=== PATIENT | female | born 1950 | race Caucasian/White ===

== ENCOUNTER 2021-07-05 10:12 | Outpatient (CLI) | payer MEDICARE, SELFPAY ==
[2021-07-05 10:57] LABS: SARS-CoV-2 RNA PCR Negative (Negative)
== END 2021-07-05 10:13 | disposition home or self-care (01) ==
LOC: CHSLAB 10:13
PROVIDERS: PCP Internal Medicine
DX: Z01.812 Encounter for preprocedural laboratory examination (principal); Z20.822 Contact with and (suspected) exposure to COVID-19
CPT/HCPCS: C9803; U0003; U0005

== ENCOUNTER 2023-11-08 16:48 | Emergency (ER) | payer MEDICARE, SELFPAY ==
[2023-11-08] VITALS (36 sets, daily range): BP systolic 95–129; BP diastolic 46–69; PULSE 58–77; RESP 13–20; TEMP 36.7; O2SAT 83–100
--- NOTE | 2023-11-08 17:21 | ED.OVERDOSE ---
HPI - Overdose General Chief Complaint: Overdose Stated Complaint: dizziness Time Seen by Provider: 11/08/23 16:59 Source: patient Mode of arrival: ambulatory History of Present Illness HPI Narrative: patient is a 73-year-old female with a significant past medical history that presents today for using too much CBD oral. Patient is ever taking CBD oil in the past. However today she decided to take 80 mg at once accidentally. She did not help which is in the dropper and drink around 80 mg instead of what was supposed to be around 40. She has some shallow breathing and anxiety and says she feels sleepy and dizzy. EMS transfer off and she was already hooked up to fluids and was stable. MD complaint: accidental overdose Onset (ago): hour(s) Time: 17:22 Treatments Prior to Arrival: IV fluids Related Data Home Medications Medication Instructions Recorded Confirmed diltiazem HCl 240 mg 240 mg PO DAILY 11/08/23 11/08/23 capsule,extended release 24 hr lisinopril 20 mg tablet 20 mg PO QPM 11/08/23 11/08/23 lisinopril 20 1 tablet PO QAM 11/08/23 11/08/23 mg-hydrochlorothiazide 25 mg tablet omeprazole 20 mg capsule,delayed 20 mg PO DAILY 11/08/23 11/08/23 release pravastatin 40 mg tablet 40 mg PO HS 11/08/23 11/08/23 Allergies Allergy/AdvReac Type Severity Reaction Status Date / Time cefazolin [From Ancef] AdvReac Nausea and Verified 11/08/23 17:08 Vomiting clarithromycin [From Biaxin] AdvReac Nausea and Verified 11/08/23 17:08 Vomiting tramadol AdvReac Nausea and Verified 11/08/23 17:08 Vomiting Review of Systems Review of Systems: All systems reviewed & are unremarkable except as noted in HPI and below Constitutional: Constitutional: Reports as per HPI Eyes: Eyes: Reports no additional eye complaints ENT: Reports system reviewed and no additional complaints, except as documented Cardiovascular: Cardiovascular: Reports no additional cardiovascular complaints Respiratory: Respiratory: Reports as per HPI Gastrointestinal: Gastrointestinal: Reports no additional gastrointestinal complaints Genitourinary: Genitourinary: Reports no additional female genitourinary complaints Musculoskeletal: Musculoskeletal: Reports no additional musculoskeletal complaints Integumentary/Breasts: Skin/Breast: Reports system reviewed and no additional complaints, except as docu Neurologic: Reports system reviewed and no additional complaints, except as documented Psychiatric: Psychiatric: Reports no additional psychiatric complaints Endocrine: Endocrine: Reports no additional endocrine complaints Hematologic/Lymphatic: Hematologic/Lymphatic: Reports no additional hematologic/lymphatic complaints Allergic/Immunologic: Allergic/Immunologic: Reports no additional allergic/immunologic complaints Exam Const: General: healthy appearing Nutritional Appearance: well nourished Orientation/consciousness: patient oriented x3 HENMT: Head: normal to inspection Ears: external ears normal Face/Nose/Sinus: Normal external nose present Face and sinus: normal facial exam Eyes: Conjunctivae: conjunctivae normal Pupils: Equal, round and reactive pupils present EOM: EOMs intact bilaterally Neck: Neck: normal visual inspection Chest: Chest palpation & inspection: normal inspection of the chest Resp: Effort & Inspection: normal respiratory effort Auscultation: clear to auscultation bilaterally Cardio: Rate: regular rate Rhythm: regular rhythm GI: GI Palp: Yes Soft to palpation Back/Spine/Pelvis: Back: no CVA tenderness Skin: General skin exam: normal color Rashes: no rashes Wounds: no wounds Neuro: General: patient oriented x3 Cranial nerves: Yes Nystagmus not present Extrem: General: normal to inspection Psych: Mental Status: mental status grossly normal Affect: normal affect Course Reevaluation(s) Reevaluation #1: Patient feels much better now and can be safely discharged home. Date:
[2023-11-08 17:55] LABS: Basophils Absolute Auto 0.05 K/mm3 (0.00-0.10); Basophils Percent Auto 0.5 % (0.0-1.0); Eosinophils Absolute Auto 0.21 K/mm3 (0.02-0.50); Hematocrit 41.8 % (35.0-42.0); Hemoglobin 14.2 g/dL (11.7-13.8); Immature Granulocyte Absolute 0.05 K/mm3 (0.00-0.00); Immature Granulocyte Percent A 0.5 % (0.0-0.0); Lymphocytes Percent Auto 16.2 % (18.0-42.0); Mean Corpuscular Hemoglobin 29.6 pg (27.0-31.0); Mean Corpuscular Volume 87.3 fL (78.0-102.0); Mean Platelet Volume 9.8 fl (9.2-11.8); Monocytes Absolute Auto 0.57 K/mm3 (0.10-0.90); Monocytes Percent Auto 5.4 % (2.0-11.0); Neutrophils Percent Auto 75.4 % (50.0-70.0); Platelet Count Result 214 K/mm3 (150-420); Red Blood Count 4.79 M/mm3 (4.20-5.40); White Blood Count 10.5 K/mm3 (4.8-10.8)
[2023-11-08 18:59] LABS: Alanine Aminotransferase 18 U/L (6-35); Albumin Level 4.4 g/dL (3.5-5.1); Alkaline Phosphatase 72 U/L (38-126); Anion Gap 11 mmol/L (4-12); Aspartate Amino Transferase 29 U/L (14-36); Bilirubin,Total 0.4 mg/dL (0.2-1.3); Blood Urea Nitrogen 17 mg/dL (7-17); Calcium 9.4 mg/dL (8.4-10.2); Carbon Dioxide 30 mmol/L (22-30); Chloride 97 mmol/L (98-107); Estimated CRCL calculation 52 ml/min; Estimated Glomerular Filt Rate > 60; Glucose 134 mg/dL (65-110); Osmolality Calculated 289 mOsm/kg (285-295); Potassium 3.3 mmol/L (3.4-5.0); Sodium 138 mmol/L (137-145)
--- NOTE | 2023-11-08 19:27 | PC.NURSE ---
REPORT TO STEPHANIE CARROLL.
[2023-11-08] MEDS: ONDANSETRON INJ 4 MG/2 ML VIAL IV PUSH (19:42)
[2023-11-08] MEDS: SODIUM CHLORIDE 0.9% IV 1,000 ML 999 ML IV CONT ×2 (20:17→22:41)
[2023-11-08 22:02] LABS: Add Urine Microscopic? NO; Appearance Urine Clear (Clear); Bilirubin Urine Negative (Negative); Blood Urine Negative (Negative); Color Urine Yellow (Yellow); Glucose Urine UA Negative (Negative); Ketones Urine Negative (Negative); Leukocyte Esterase Ur Negative (Negative); Nitrate Urine Negative (Negative); Protein Urine Negative (Negative); Specific Grav Ur >= 1.030 (1.010-1.020)
[2023-11-08 22:57] LABS: Amphetamine Screen Urine Negative (Negative); Barbiturate Screen Urine Negative (Negative); Benzodiazepines Screen Urine Negative (Negative); Cannabinoid Screen Urine Positive (Negative); Cocaine Screen Urine Negative (Negative); Methadone Screen Urine Negative (Negative); Opiate Screen Urine Negative (Negative); Phencyclidine Screen Urine Negative (Negative)
[2023-11-09] VITALS (69 sets, daily range): BP systolic 92–134; BP diastolic 49–73; PULSE 56–84; RESP 9–22; TEMP 36.8; O2SAT 92–100
--- NOTE | 2023-11-09 00:29 | PC.NURSE ---
pt ambulated to and from bathroom with assistance. back in room sipping on a white soda. no current complaints. pt is resting comfortably
[2023-11-09] MEDS: SODIUM CHLORIDE 0.9% IV 1,000 ML 999 ML IV CONT (00:44)
--- NOTE | 2023-11-09 02:18 | PC.NURSE ---
pt ambulated to and from bathroom with assistance. pt back in room resting comfortably
--- NOTE | 2023-11-09 04:33 | PC.NURSE ---
pt ambulated to and from bathroom. back in room resting comfortably. pt stated she feels much better
== END 2023-11-09 08:54 | disposition home or self-care (01) ==
PROVIDERS: Emergency Provider Family Medicine
DX: T40.721A Poisoning by synthetic cannabinoids, accidental (unintentional), initial encounter (principal); R42 Dizziness and giddiness; Z79.899 Other long term (current) drug therapy
CPT/HCPCS: 36415; 80053; 80307; 81003; 85025; 96361; 96374; 99284; J2405; J7030

== ENCOUNTER 2024-05-23 18:53 | Day surgery (SDC) | payer MEDICARE, SELFPAY ==
[2024-05-23] VITALS (9 sets, daily range): BP systolic 98–174; BP diastolic 59–90; PULSE 69–80; RESP 14–23; TEMP 36.3–36.8; O2SAT 93–100
--- OUTSIDE RECORDS SUMMARY | 2024-05-23 18:57 | XMS_ITS | Clinical Summary ---
Author Organization [facility] Address [facility] [place] [address] Care Team Providers Care Department Of Natural Resources Officer Name Role Phone Yas Lopez MD Primary Care Provider [phone] Allergies Active Allergy Reactions Criticality Noted Date Comments Cefazolin Unknown 12/13/2022 Clarithromycin Unknown 12/13/2022 Tramadol Vomiting 12/13/2022 Medications HUMIRA PEN 40 MG/0.4ML pen-injector kit Inject 0.4 mLs (40 mg total) into the skin every 7 days. 02/25/2022 Active dilTIAZem CD (CARDIZEM CD) 240 MG 24 hr capsule Take 1 capsule (240 mg total) by mouth daily. 09/11/2022 Active lisinopril (PRINIVIL) 20 MG tablet Take 1 tablet (20 mg total) by mouth every evening. 09/11/2022 Active lisinopril-hydr oCHLOROthiazide (ZESTORETIC) 20-25 MG tablet Take 1 tablet by mouth every morning. FOR 14 DAYS Active omeprazole (PRILOSEC) 20 MG capsule Take 1 capsule (20 mg total) by mouth daily. 09/11/2022 Active pravastatin (PRAVACHOL) 40 MG tablet Take 1 tablet (40 mg total) by mouth nightly at bedtime. Active HYDROcodone-roxanne taminophen (NORCO) 5-325 MG tabletIndicatio ns:Acute Pain < 7 Day Supply Take 1-2 tablets by mouth every 6 (six) hours as needed. Indications: Acute Pain < 7 Day Supply 20 tablet 12/13/2022 Active Encounters Date Type Department Care Team Description 04/29/2024 7:46 AM DEBONING TEAM LEADER - 04/29/2024 11:59 PM DEBONING TEAM LEADER Hospital Encounter [facility] [place] - Mammography [address] [place] [phone] Yas Lopez MD Discharge Disposition: Home or Self Care (Routine Discharge) 04/29/2024 Travel 04/18/2024 1:10 PM DEBONING TEAM LEADER - 04/18/2024 11:59 PM DEBONING TEAM LEADER Hospital Encounter [facility] [place] - Ultrasound [address] [place] [phone] Yas Lopez MD Discharge Disposition: Home or Self Care (Routine Discharge) 04/18/2024 1:09 PM DEBONING TEAM LEADER Hospital Encounter [facility] [place] - Mammography [address] [place] [phone] Yas Lopez MD Discharge Disposition: Home or Self Care (Routine Discharge) 04/18/2024 Travel 04/04/2024 10:28 AM DEBONING TEAM LEADER - 04/04/2024 11:59 PM DEBONING TEAM LEADER Hospital Encounter [facility] [place] - Mammography [address] [place] [phone] Yas Lopez MD Discharge Disposition: Home or Self Care (Routine Discharge) 04/04/2024 Travel from Last 3 Months Social History Tobacco Use Types Packs/Day Years Used Date Smoking Tobacco: Never Smokeless Tobacco: Never Tobacco Cessation:Counseling Given: Not Answered Alcohol Use Standard Drinks/Week Comments Never 0 (1 standard drink = 0.6 oz pur e alcohol) Comments No Sex and Gender Information Value Date Recorded Sex Assigned at Not on file Legal Sex Female 9:27 PM DEBONING TEAM LEADER Gender Identity Not on file Sexual Orientation Not on file Last Filed Vital Signs Vital Sign Reading Time Taken Comments Blood Pressure 101/64 12/13/2022 7:00 PM CDT Pulse 69 12/13/2022 7:00 PM CDT Temperature 35.9 C (96.7 F) 12/13/2022 4:29 PM CDT Respiratory Rate 18 12/13/2022 7:00 PM CDT Oxygen Saturation 95% 12/13/2022 7:00 PM CDT Inhaled Oxygen Concentration - - Weight 70.5 kg (155 lb 6.4 oz) 12/13/2022 4:29 P M CDT Height 158.8 cm (5' 2.5 ) 12/13/2022 4:29 PM CDT Body Mass Index 27.97 12/13/2022 4:29 PM CDT Plan of Treatment Upcoming Encounters Date Type Department Care Team (Late st Contact Info) Description 10/29/2024 11:00 AM CDT Appointment [facility] [place] [facility] - Mammography [address] [place] [address] [phone] [place] [address] [place], [place] [phone] Health Maintenance Due Date Last Done Comments Colorectal Cancer Screening Colonoscopy (10 Years) 1950 Hepatitis C 1968 DTaP, Tdap and Td Vaccines (1 - Tdap) 1969 Annual Medicare Wellness Visit 07/17/2015 Dexa Scan (General) 07/17/2015 Zoster Vaccines (3 of 3) 06/02/2023 04/07/2023, 10/05 COVID-19 Vaccine ( season) 2023 01/18/2023, 01/06/2023, 12/20/2021, Additional history exists Influenza Adult (#1) 2023 01/06/2023, 12/17/2019, 12/18/2018, Additional history exists RSV Immunization or 60+ Years (1 - 1-dose 75+ series) 2025 Mammogram Screening 04/29/2026 04/29/2024, 04/18/2024, 04/04/2024, Additional history exists Pneumococcal Vaccine: 65+ Years Completed 08/18/2022, 01/20/2016 Meningococcal B Vaccine Aged Out No l onger eligible based on patient's age to complete this topic Meningococcal Vaccine Aged Out No russell myrna eligible based on patient's age to complete this topic RSV Immunizations Under 20 Months Aged Out No longer eligible based on patient's age to complete this topic Procedures Procedure Name Priority Date/Time Associated Diagnosis Comments MG STEREO CORE BX RT BIRAD Routine 04/29/2024 9:05 AM DEBONING TEAM LEADER Abnormal mammogram MG POST PROC RT DIAG MAMMO Routine 04/29/2024 8:50 AM DEBONING TEAM LEADER Abnormal mammogram PATHOLOGY Routine 04/29/2024 12:00 AM DEBONING TEAM LEADER US BREAST RT BIRAD LTD Routine 04/18/2024 2:23 PM DEBONING TEAM LEADER Abnormal mammogram MG DIAG ADD VIEW RT DIGI Routine 04/18/2024 1:27 PM DEBONING TEAM LEADER Abnormal mammogram MG SCREENING W BÁRBARA PRIYA DIGI Routine 04/04/2024 10:40 AM DEBONING TEAM LEADER Encounter for screening mammogram for malignant neoplasm of breast from Last 3 Months Results * MG STEREO CORE BX RT BIRAD (04/29/2024 9:05 AM DEBONING TEAM LEADER) Anatomical Region Laterality Modality Breast Right Radiographic Leanna ging RIGHT BREAST STRUCTURE / Unknown 04/29/2024 1:18 PM DEBONING TEAM LEADER Addenda Addendum by Víctor Hassan MD on 05/01/2024 12:32 PM DEBONING TEAM LEADER [facility] [address] [address] [phone] FINAL PATHOLOGY DIAGNOSIS: Breast, right, 4:00 to 4:30, needle biopsies: -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 -Negative for malignancy. RECOMMENDATION: The imaging and pathology are considered concordant. The focal pseudoangiomatous stromal hyperplasia is asymptomatic. This can be followed with imaging. Surgery would be indicated if patient symptomatic. 1: Follow-up Diagnostic Mammogram Right in 6 Months ASSESSMENT: ACR BI-RADS CATEGORY 3 - PROBABLY BENIGN FINDING(S) Ordered By: YAS LOPEZ Interpreted By: Víctor Hassan MD, 05/01/2024 12:28 PM Impressions 04/29/2024 1:21 PM DEBONING TEAM LEADER IMPRESSION: Successful stereotactic biopsy of the asymmetry. Open heart biopsy clip in satisfactory position. Pathology pending. Ordered By: YAS LOPEZ Interpreted By: Víctor Hassan MD, 04/29/2024 1:18 PM Narrative 04/29/2024 1:21 PM DEBONING TEAM LEADER [facility] [address] [address] [phone] EXAM: RIGHT BREAST STEREOTACTIC CORE BIOPSY WITH CLIP PLACEMENT x1 MG POST PROC DIAG MAMMO [id number] Exam Date: 04/29/2024 7:46 AM INDICATION: Persistent indeterminant developing right mammographic asymmetry at 4:00/4:30 spanning AP 9 mm. Sonographically in this radian and indeterminant shadowing amorphous structure noted. It is unclear whether these correlate or this represents incidental sonographically detected finding especially given some slight discordance noted. Stereotactic biopsy recommended to ensure correlation and for definitive histologic diagnosis. PROCEDURE: Patient was referred for stereotactic biopsy of asymmetry demonstrated on diagnostic study. I provided a [id number] consultation prior to the scheduled procedure. The procedure, risks, benefits, and alternatives explained to the patient. Written informed consent obtained. Preprocedure timeout performed using 2 patient identifiers. Patient confirmed the side and type of procedure. I briefly reviewed the patient's medication list in person and verbally prior to the procedure. BIOPSY: After patient was placed on the WeoGeo PRONE AFFIRM stereotactic biopsy device with the breast placed through a hole in compression targeted asymmetry was stereotactically localized from medial approach. Maximal sterile barrier technique was utilized for the entire procedure including handwashing with conventional soap-water and/or alcohol based hand regulatory compliance coordinator. Subsequently 1% lidocaine alone and lidocaine with epinephrine administered for local anesthesia and a small skin damaso was made. The 9 gauge WeoGeo Brevera biopsy device was placed and prefire images confirmed the target. After the device was fired, 11 core samples obtained. These were subsequently x-rayed. SPECIMEN RADIOGRAPH(S): The digital specimen radiograph obtained real-time during active sampling, demonstrates adequate sampling of tissue. Open heart biopsy clip was then deployed at the biopsy site in satisfactory position. Samples sent to pathology for review. POST PROCEDURE MAMMOGRAM: Digital mammogram performed in a separate work room demonstrates post biopsy changes with small hematoma and the clip placed. Tissue density: The breast tissue is almost entirely fatty. Patient tolerated the procedure well and there were no immediate complications. Written and verbal post procedure care instructions given to her prior to her departure. Procedure Note Víctor Hassan MD - 04/29/2024 [facility] [address] [address] [phone] EXAM: RIGHT BREAST STEREOTACTIC CORE BIOPSY WITH CLIP PLACEMENT x1 MG POST PROC DIAG MAMMO [id number] Exam Date: 04/29/2024 7:46 AM INDICATION: Persistent indeterminant developing right mammographicasymmetry at 4:00/4:30 spanning AP 9 mm. Sonographically in this radianand indeterminant shadowing amorphous structure noted. It is unclear whether these correlate or this represents incidentalsonographically detected finding especially given some slight discordancenoted. Stereotactic biopsy recommended to ensure correlation and fordefinitive histologic diagnosis. PROCEDURE: Patient was referred for stereotactic biopsy of asymmetrydemonstrated on diagnostic study. I provided a [id number] consultationprior to the scheduled procedure. The procedure, risks, benefits, andalternatives explained to the patient. Written informed consent obtained.Preprocedure timeout performed using 2 patient identifiers. Patientconfirmed the side and type of procedure. I briefly reviewed the patient'smedication list in person and verbally prior to the procedure. BIOPSY: After patient was placed on the WeoGeo PRONE AFFIRM stereotacticbiopsy device with the breast placed through a hole in compressiontargeted asymmetry was stereotactically localized from medial approach.Maximal sterile barrier technique was utilized for the entire procedureincluding handwashing with conventional soap- water and/or alcohol basedhand regulatory compliance coordinator. Subsequently 1% lidocaine alone and lidocaine withepinephrine administered for local anesthesia and a small skin damaso wasmade. The 9 gauge GamerDNAvera biopsy device was placed and prefireimages confirmed the target. After the device was fired, 11 core samplesobtained. These were subsequently x-rayed. SPECIMEN RADIOGRAPH(S): The digital specimen radiograph obtained real-timeduring active sampling, demonstrates adequate sampling of tissue. Openheart biopsy clip was then deployed at the biopsy site in satisfactoryposition. Samples sent to pathology for review. POST PROCEDURE MAMMOGRAM: Digital mammogram performed in a separate workroom demonstrates post biopsy changes with small hematoma and the clipplaced. Tissue density: The breast tissue is almost entirely fatty. Patient tolerated the procedure well and there were no immediatecomplications. Written and verbal post procedure care instructions given to her prior toher departure. IMPRESSION: Successful stereotactic biopsy of the asymmetry. Open heart biopsy clip in satisfactory position. Pathology pending. 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 -Negative for malignancy. RECOMMENDATION: The imaging and pathology are considered concordant. The focal pseudoangiomatous stromal hyperplasia is asymptomatic. This can be followed with imaging. Surgery would be indicated if patient symptomatic. 1: Follow-up Diagnostic Mammogram Right in 6 Months ASSESSMENT: ACR BI-RADS CATEGORY 3 - PROBABLY BENIGN FINDING(S) Ordered By: YAS LOPEZ Interpreted By: Víctor Hassan MD, 05/01/2024 12:28 PM Impressions 04/29/2024 1:21 PM DEBONING TEAM LEADER IMPRESSION: Successful stereotactic biopsy of the asymmetry. Open heart biopsy clip in satisfactory position. Pathology pending. Ordered By: YAS LOPEZ Interpreted By: Víctor Hassan MD, 04/29/2024 1:18 PM Narrative 04/29/2024 1:21 PM DEBONING TEAM LEADER [facility] [address] [address] [phone] EXAM: RIGHT BREAST STEREOTACTIC CORE BIOPSY WITH CLIP PLACEMENT x1 MG POST PROC DIAG MAMMO [id number] Exam Date: 04/29/2024 7:46 AM INDICATION: Persistent indeterminant developing right mammographic asymmetry at 4:00/4:30 spanning AP 9 mm. Sonographically in this radian and indeterminant shadowing amorphous structure noted. It is unclear whether these correlate or this represents incidental sonographically detected finding especially given some slight discordance noted. Stereotactic biopsy recommended to ensure correlation and for definitive histologic diagnosis. PROCEDURE: Patient was referred for stereotactic biopsy of asymmetry demonstrated on diagnostic study. I provided a [id number] consultation prior to the scheduled procedure. The procedure, risks, benefits, and alternatives explained to the patient. Written informed consent obtained. Preprocedure timeout performed using 2 patient identifiers. Patient confirmed the side and type of procedure. I briefly reviewed the patient's medication list in person and verbally prior to the procedure. BIOPSY: After patient was placed on the WeoGeo PRONE AFFIRM stereotactic biopsy device with the breast placed through a hole in compression targeted asymmetry was stereotactically localized from medial approach. Maximal sterile barrier technique was utilized for the entire procedure including handwashing with conventional soap-water and/or alcohol based hand regulatory compliance coordinator. Subsequently 1% lidocaine alone and lidocaine with epinephrine administered for local anesthesia and a small skin damaso was made. The 9 gauge WeoGeo Brevera biopsy device was placed and prefire images confirmed the target. After the device was fired, 11 core samples obtained. These were subsequently x-rayed. SPECIMEN RADIOGRAPH(S): The digital specimen radiograph obtained real-time during active sampling, demonstrates adequate sampling of tissue. Open heart biopsy clip was then deployed at the biopsy site in satisfactory position. Samples sent to pathology for review. POST PROCEDURE MAMMOGRAM: Digital mammogram performed in a separate work room demonstrates post biopsy changes with small hematoma and the clip placed. Tissue density: The breast tissue is almost entirely fatty. Patient tolerated the procedure well and there were no immediate complications. Written and verbal post procedure care instructions given to her prior to her departure. Procedure Note Víctor Hassan MD - 04/29/2024 [facility] [address] [address] [phone] EXAM: RIGHT BREAST STEREOTACTIC CORE BIOPSY WITH CLIP PLACEMENT x1 MG POST PROC DIAG MAMMO [id number] Exam Date: 04/29/2024 7:46 AM INDICATION: Persistent indeterminant developing right mammographicasymmetry at 4:00/4:30 spanning AP 9 mm. Sonographically in this radianand indeterminant shadowing amorphous structure noted. It is unclear whether these correlate or this represents incidentalsonographically detected finding especially given some slight discordancenoted. Stereotactic biopsy recommended to ensure correlation and fordefinitive histologic diagnosis. PROCEDURE: Patient was referred for stereotactic biopsy of asymmetrydemonstrated on diagnostic study. I provided a [id number] consultationprior to the scheduled procedure. The procedure, risks, benefits, andalternatives explained to the patient. Written informed consent obtained.Preprocedure timeout performed using 2 patient identifiers. Patientconfirmed the side and type of procedure. I briefly reviewed the patient'smedication list in person and verbally prior to the procedure. BIOPSY: After patient was placed on the WeoGeo PRONE AFFIRM stereotacticbiopsy device with the breast placed through a hole in compressiontargeted asymmetry was stereotactically localized from medial approach.Maximal sterile barrier technique was utilized for the entire procedureincluding handwashing with conventional soap- water and/or alcohol basedhand regulatory compliance coordinator. Subsequently 1% lidocaine alone and lidocaine withepinephrine administered for local anesthesia and a small skin damaso wasmade. The 9 gauge WeoGeo Brevera biopsy device was placed and prefireimages confirmed the target. After the device was fired, 11 core samplesobtained. These were subsequently x-rayed. SPECIMEN RADIOGRAPH(S): The digital specimen radiograph obtained real-timeduring active sampling, demonstrates adequate sampling of tissue. Openheart biopsy clip was then deployed at the biopsy site in satisfactoryposition. Samples sent to pathology for review. POST PROCEDURE MAMMOGRAM: Digital mammogram performed in a separate workroom demonstrates post biopsy changes with small hematoma and the clipplaced. Tissue density: The breast tissue is almost entirely fatty. Patient tolerated the procedure well and there were no immediatecomplications. Written and verbal post procedure care instructions given to her prior toher departure. IMPRESSION: Successful stereotactic biopsy of the asymmetry. Open heart biopsy clip in satisfactory position. Pathology pending. Ordered By: YAS LOPEZ Interpreted By: Víctor Hassan MD, 04/29/2024 1:18 PM Yas Lopez MD MAMMO Edited Res ult - Final * Pathology (04/29/2024 12:00 AM DEBONING TEAM LEADER) PATHOLOGY [facility] Department of Laboratory Medicine [address] [place] [phone] , extension [phone] Pathology Report Surgical Pathology Report Name: CATHLEEN PALMER Specimen #: [id number] Age: 5 1950 (Age: 73) Location: [facility] Sex: F Procedure Date: 04/29/2024 Hospital #: [id number] Date Received: 04/29/2024 Date Reported: 04/30/2024 Provider: YAS HASSAN MD Source: Breast, right 4:00-4:30, needle biopsies Clinical History: Right breast asymmetry at 4 o'clock 4:30, spanning 9 mm. 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 -Negative for malignancy. Gross Description: Received in formalin, labeled with a patient label and as right 4 4:30 are multiple 0.3 - 0.4 cm diameter cores and fragments of white yellow tissue, approximately 5.5 x 5 x 0.6 cm in aggregate. The tissue is present in 11 separately designated wells, labeled A through K. The radiologist has not identified any areas of interest. The specimen is entirely submitted in cassettes 1 through 9. Please note: The cold ischemia time for this specimen was less than one hour. It was placed in formalin at 0845 on 04/29/24 for a total time in formalin of 10 hours and 15 minutes. Gross examination (when applicable), interpretation, and sign out were performed at [facility], [address] [place] [address]. Electronically Signed Out KENDALL WILKINS MD [facility] 04/29/2024 04/29/2024 2:3 4 PM DEBONING TEAM LEADER Comment:Breast, right 4:00-4 :30, needle biopsies Yas Lopez MD PATHOLOGY/CYTOLOGY ORDERAB LES Final Result Performing Organization Address City/State/[facility] Co de Phone Number [facility] [address] [place] [phone], [id number] * BREAST RT BIRAD LTD (04/18/2024 2:23 PM DEBONING TEAM LEADER) Anatomical Region Laterality Modality Breast Right Ultrasound 04/18/2024 1:55 PM DEBONING TEAM LEADER Narrative 04/18/2024 2:26 PM DEBONING TEAM LEADER [address] [address] Examination(s): RIGHT DIGITAL DIAGNOSTIC MAMMOGRAM [id number] Exam Date: 04/18/2024 1:09 PM Clinical Indication: Female 73 years of age additional imaging indeterminant asymmetry. Comparison: Screening mammogram 03/30 Technique: True lateral and multiple spot images. Tomosynthesis imaging acquisition. Study supplemented with computer aided detection program. Static sonographic grayscale images obtained supplemented with Doppler. MAMMOGRAM FINDINGS: The subcentimeter lower inner anterior to mid junction asymmetry of concern persists with minimal variability on the true lateral view. On spot imaging there is persistence with partial compressibility and lobulated as well as convex contours. This appears to be heavily developing appearance when compared to older prior mammogram from 03/29. Located at 4:00/4:30 spanning AP 9 mm. Targeted ultrasound performed to further characterize. Additional and scarring with areas of fat necrosis/oil cysts and scattered calcifications throughout the remainder of the breast along with fluctuant waxing waning nodules compatible with known history of cysts. RIGHT ULTRASOUND FINDINGS: Targeted ultrasound Performed from 06 02-08 02. At the 4:00/4:30 radian and amorphous the probably hypoechoic shadowing nonparallel structure identified. Difficult to characterize size but spans approximately 6 x 5 x 4 mm with volume of 0.03 mL. The no definite internal vascularity. It is unclear whether this corresponds with the mammographic developing asymmetry of concern or represent incidental ultrasound detected finding potentially related to postsurgical scarring and fat necrosis. By criteria no suspicious appearing axillary lymph nodes demonstrated. IMPRESSION 1. Persistent indeterminant developing right mammographic asymmetry confirmed at 4:00/4:30. Sonographically in this radian and indeterminant shadowing amorphous structure noted. It is unclear whether these correlate or this represents incidental sonographically detected finding especially given some slight discordance noted. Stereotactic biopsy recommended to ensure correlation and for definitive histologic diagnosis. 2. Additional stable and benign findings, detailed above. Findings and recommendations conveyed to the patient and ordering provider's office by our department navigator as per standard protocol. RECOMMENDATION: Needle Biopsy Right in 1 Year ASSESSMENT: ACR BI-RADS CATEGORY 4 - SUSPICIOUS FINDING(S) Ordered By: YAS LOPEZ Interpreted By: Sushma Lacy MD, 04/18/2024 1:55 PM us Yas Lopez MD ULTRASOUND Final Resu lt * MG DIAG ADD VIEW RT DIGI (04/18/2024 1:27 PM DEBONING TEAM LEADER) Anatomical Region Laterality Modality Breast Right Radiographic Leanna ging 04/18/2024 1:55 PM DEBONING TEAM LEADER Narrative 04/18/2024 2:26 PM DEBONING TEAM LEADER [facility] [address] [address] [phone] Examination(s): RIGHT DIGITAL DIAGNOSTIC MAMMOGRAM [id number] Exam Date: 04/18/2024 1:09 PM Clinical Indication: Female 73 years of age additional imaging indeterminant asymmetry. Comparison: Screening mammogram 03/30 Technique: True lateral and multiple spot images. Tomosynthesis imaging acquisition. Study supplemented with computer aided detection program. Static sonographic grayscale images obtained supplemented with Doppler. MAMMOGRAM FINDINGS: The subcentimeter lower inner anterior to mid junction asymmetry of concern persists with minimal variability on the true lateral view. On spot imaging there is persistence with partial compressibility and lobulated as well as convex contours. This appears to be heavily developing appearance when compared to older prior mammogram from 03/29. Located at 4:00/4:30 spanning AP 9 mm. Targeted ultrasound performed to further characterize. Additional and scarring with areas of fat necrosis/oil cysts and scattered calcifications throughout the remainder of the breast along with fluctuant waxing waning nodules compatible with known history of cysts. RIGHT ULTRASOUND FINDINGS: Targeted ultrasound Performed from 3 30-5 30. At the 4:00/4:30 radian and amorphous the probably hypoechoic shadowing nonparallel structure identified. Difficult to characterize size but spans approximately 6 x 5 x 4 mm with volume of 0.03 mL. The no definite internal vascularity. It is unclear whether this corresponds with the mammographic developing asymmetry of concern or represent incidental ultrasound detected finding potentially related to postsurgical scarring and fat necrosis. By criteria no suspicious appearing axillary lymph nodes demonstrated. IMPRESSION 1. Persistent indeterminant developing right mammographic asymmetry confirmed at 4:00/4:30. Sonographically in this radian and indeterminant shadowing amorphous structure noted. It is unclear whether these correlate or this represents incidental sonographically detected finding especially given some slight discordance noted. Stereotactic biopsy recommended to ensure correlation and for definitive histologic diagnosis. 2. Additional stable and benign findings, detailed above. Findings and recommendations conveyed to the patient and ordering provider's office by our department navigator as per standard protocol. RECOMMENDATION: Needle Biopsy Right in 1 Year ASSESSMENT: ACR BI-RADS CATEGORY 4 - SUSPICIOUS FINDING(S) Ordered By: YAS LOPEZ Interpreted By: Sushma Lacy MD, 04/18/2024 1:55 PM Yas Lopez MD MAMMO Final Resu lt * MG SCREENING W BÁRBARA PRIYA DIGI (04/04/2024 10:40 AM DEBONING TEAM LEADER) Anatomical Region Laterality Modality Breast Bilateral Mammography 04/04/2024 4:25 PM DEBONING TEAM LEADER Impressions 04/04/2024 4:36 PM DEBONING TEAM LEADER IMPRESSION: Indeterminate two-view nodular asymmetry in the inferior medial right breast. RECOMMENDATION: Additional Imaging, Right ASSESSMENT: ACR BI-RADS 0 - INCOMPLETE: NEEDS ADDITIONAL IMAGING EVALUATION Ordered By: YAS LOPEZ Interpreted By: Tony Kraus MD, 04/04/2024 4:25 PM Narrative 04/04/2024 4:36 PM DEBONING TEAM LEADER [facility] [address] [id number] [phone] EXAMINATION: BILATERAL SCREENING MAMMOGRAPHY Exam Date: 04/04/2024 10:28 AM CLINICAL INDICATION: 73 years of age female routine screening. COMPARISON: Screening mammogram(s) dating back to 10/13/2020. TECHNIQUE: Digital CC & MLO views. Tomosynthesis imaging acquisition Study read with the assistance of a computer-aided detection system. TISSUE DENSITY: The breasts are almost entirely fatty. FINDINGS: Benign calcifications and axillary lymph nodes. Biopsy clip in the lateral left breast. There is a increasing fairly well-circumscribed two-view nodular asymmetry. No suspicious grouping of microcalcifications, architectural distortion, or new dominant suspicious nodule otherwise 3 dimensionally demonstrated in either breast. Yas Lopez MD MAMMO Final Resu lt from Last 3 Months Insurance [employer] Care Teams Department Of Natural Resources Officer Relationship Specialty [place] [address] [place] [address] PCP - General INTERNAL MEDICINE 04/24/18
--- OUTSIDE RECORDS SUMMARY | 2024-05-23 18:57 | XMS_ITS | Encounter Summary ---
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 Gender Identity Not on file Sexual Orientation Not on file documented as of this encounter Plan of Treatment Upcoming Encounters Date Type Department Care Team (Late Contact Info) Description 10/29/2024 11:00 AM CDT Appointment [facility] [address] [place] [id number] [place] [address] [place], [place] [id number] documented as of this encounter Visit Diagnoses Not on filedocumented in this encounter Care Teams Go Cart Mechanic Relationship Specialty [place] [address] [place], [place] [id number] PCP - General INTERNAL MEDICINE 04/24/18 documented as of this encounter
--- OUTSIDE RECORDS SUMMARY | 2024-05-23 18:57 | XMS_ITS | Data Portability ---
Author Organization [facility], [address] ([place]) Address [address] 4th [place] [address] Care Team Providers Care Caregiver Assisted Living Name Role Phone YAS LOPEZ Primary Care Provider [phone] TC RAMOS Referring Provider [phone] Assessment Encounter Date Assessment Date Assessment LastModified by Organization Details LastModified Time 04/10/2024 04/10/2024 I will order lab s to check her cholesterol and kidney and liver function test. She will do these at [facility] tomorrow when she sees Dr. Cr in case he wants to add any other blood work to her draw. She will continue her current therapies. For caregiver stress, it sounds as if she has good support with family members. I did offer her to see a counselor but at this time she thinks she is okay. She knows to call me with any concerns. I will see her back in 6 months. She had an abnormal mammogram and is having a follow-up in April on the . Total time 30 minutes [email or web address] Not available 04/16/2024 19:56:59 04/11/2024 04/11/2024 IMPRESSION: 1. Seropositive RA, currently well controlled. 2. Osteoarthritis polyarticular. PLAN: 1. Provided the patient will instructional sheets in hip stretches and shoulder stretches 25 repetitions twice daily of each exercise. 2. Continue HUMIRA 40 mg subcutaneously every other week dosing. 3. CRP and Westergren sed rate at this time. 4. Followup visit in 1 year. She will undergo routine CBC and CMP monitoring with her PCP once yearly. [email or web address] Not available 04/13/2024 13:47:08 05/13/2024 05/13/2024 1. The following diagnosis is categorized as a CHRONIC ILLNESS (at Pt Goal): Psoriasis vulgaris, ~BSA 0%, psoriatic arthritis, prior to RX Humira 15% : Reviewed diagnosis and treatment options. We reviewed the fact that this is a multisystem disorder and can be associated with other problems such as arthritis, diabetes, hypertension and hyperlipidemia. We discussed the chronic nature of this condition and the fact that symptoms can fluctuate over time. The importance of daily use of emollients was reviewed. Pt informed pt about psoriasis, cause, and that trauma/rubbing/itc kamaljit can make it worse. The various therapeutic modalities for psoriasis including topical treatments, ultraviolet light treatment, oral treatments and injectable biologic treatments were discussed. Prior to me, pt followed with several other dermatologists. She had tried and failed several RX topicals including Clobetasol and also tried and failed ILTAC. She also reported trying and failing NBUVB. Due to long history of being on RX po methotrexate, I sent her to hepatology who performed a fibroscan. Fibroscan showed severe hepatic steatosis and no hepatic fibrosis and pt was advised to follow up in 6 months for repeat scan. With her severe hepatic steatosis, I advised we try to stay off RX po methotrexate and switch to another treatment that ideally will not cause further liver damage. Dr. Cr, who diagnosed her with HLA B27/psoriatic arthritis started her on RX Humira. She stopped RX Otezla that helped her skin but not her joints. She is tolerating RX Humira well with no side effects and bother her skin and joints are improved. PRESCRIPTION DRUG MANAGEMENT was performed including discussion with the patient and/or family member that may include dose, expectations of treatment including potential side effects, review of patient response, and when necessary or clinically appropriate change in medication or dosage. For any flares, restart RX clobetasol 0.05% ointment twice a day to affected areas x 2 weeks, then 1 week break. Stop Clobetasol once skin is no longer red and raised however continue Dovonex. On week off, use RX Dovonex ointment BID. Hold RX mometasone. continue too follow with Dr. Cr who manages her RX Humira. 2. The following diagnosis is categorized as a SELF LIMITED OR MINOR PROBLEM: We discussed the fact that lentigines are actinically induced and that they are benign. We discussed the fact that they should be watched carefully for change. We discussed the importance of photoprotection using protective clothing and sunscreen with SPF thirty or higher on a regular basis. 3. The following diagnosis is categorized as a CHRONIC ILLNESS (STABLE/At Pt Goal): Benign nevi. We discussed the importance of watching for new and/or changing lesions. We discussed the worrisome changes to watch for that could indicate a melanoma. We discussed the importance of photoprotection using protective clothing and sunscreen with OTC SPF thirty or higher. Avoid peak hours of sun exposure (10am-3pm). We discussed the importance of regular self skin examinations. 4. The following diagnosis is categorized as a SELF LIMITED OR MINOR PROBLEM: Seborrheic keratoses, sebaceous hyperplasia: We discussed the fact that these are benign lesions requiring no treatment. We discussed the fact that removal would be considered a cosmetic procedure and would not be covered by insurance. The patient was advised that more such lesions may develop. The patient is not bothered by the lesions and does not wish to have them treated. We will observe. 5. The following diagnosis is categorized as CHRONIC ILLNESS (STABLE) Immunosuppression due to Rx Humira for psoriatic arthritis: Will continue to closely monitor, recommend at least annual skin checks or sooner for any new or changing lesions. Discussed increased risk of skin cancer. Photoprotection advised including broad spectrum spf at least 30, hats, long sleeves. Skin cancer hand out provided and reviewed 6. The following diagnosis is categorized as a SELF LIMITED OR MINOR PROBLEM: Wart. The options including observation, qkpn-rnn-romytlo treatments, and destructive measures were discussed. The patient wishes to proceed with liquid nitrogen treatment today. An explanation of the procedure was provided. The risks and benefits of the treatment, the risks and benefits of alternative treatments, as well as the possible consequences of not undergoing treatment were discussed. The verbalizes understanding and gives consent to proceed with treatment. Discussed that the lesion may need several serial visits before completion of treatment. The lesion was treated with liquid nitrogen: right neck. Wound care instructions were given. 7. The following diagnosis is categorized as a CHRONIC ILLNESS Actinic keratosis/Actinic damage: I suggested we treat the lesions with liquid nitrogen today. The risks and benefits of the procedure, the risks and benefits of alternative procedures, as well as the possible consequences of not undergoing the procedure were discussed. The patient verbalized understanding and gives consent to proceed. Liquid nitrogen was applied to all affected areas. Side effects of pain, redness, blistering, scabbing, hypopigmentation and recurrence were discussed with the patient. The patient was advised that these are pre-skin cancers: they have a small risk of developing into skin cancers and their presence signifies an increased risk for developing skin cancer. Thus she was advised to use a sunscreen of at least SPF 30 and wear protective clothing. (1) Lesions were treated on the left hand (1). Pt to call if lesions do not heal/resolve as expected. Pt voiced understanding 8. The following diagnosis is categorized as a SELF LIMITED OR MINOR PROBLEM: Seborrheic keratoses: We discussed the benign nature of the lesions. None of these lesions are clinically inflamed. We discussed the fact that insurance will not cover removal of these lesions as this is considered a cosmetic procedure. The patient understands and wishes to proceed with treatment. The risks and benefits of the procedure, the risks and benefits of alternative procedures, as well as the possible consequences of not undergoing the procedure were discussed. The potential for recurrence and development of further lesions was discussed. The potential pigmentary changes was discussed. The patient verbalizes understanding and gives consent to proceed with treatment. Lesions were treated with liquid nitrogen: right mcnulty (1) - No charge for this procedure. The patient tolerated the procedure well. Post-treatment instructions were discussed. I asked pt to return in 1 year for TBSE/immunosuppres sed/psoriasis. Pt will call with any questions or concerns in the meantime. Not available 05/14/2024 19:59:39 05/16/2024 05/16/2024 73 yo s/p right breast biopsy showing focal PASH H/o left breast PASH 2016, not excised LTR T-C 5% Right DX MMG US 6 mo, will call with results As long as benign, plan for bilateral MMG in one year Return to the clinic in 1 year Call with any concerns 45 minutes spent counseling,coordin ating care, and documentation, as well as reviewing imaging and recent medical documentation. [email or web address] Not available 05/20/2024 11:40:08 Plan of Treatment Reminders Order Date Submit Date Provider Last Modified By Organization Details Last Modified Time Details Appointments Complete Physical Adult 30.EST 2024 11:00A M Dr. Yas Franklin Not available Not available Not available [facility] Patient 15.EST 2025 10:30A M Dr. Beba Cr Not available Not available Not available [facility] Patient 10.EST 2025 11:20A M Dr. Tc Ramos Not available Not available Not available [facility] Patient 20.EST 2025 01:40P M Erum Jorge Not available Not available Not available Lab CMP, serum or plasma 2024 025 [email or web address] [facility], [address] [place] [address], [id number], 04/19/2024 16:05:24 lipid panel, serum 2024 025 [facility], [address] [place] [address], [id number], 04/11/2024 18:16:45 CMP, serum or plasma 2024 025 [facility], [address] [place] [address], [id number], 04/11/2024 18:24:03 CK (creatin e kinase), total, serum 2024 025 [facility], [address] [place] [address], [id number], 04/11/2024 18:16:47 Referral None recorded . Procedures None recorded . Surgeries None recorded . Imaging None recorded . Medication Orders None recorded . Patient TargetsNo targets recorded. Patient InstructionsNo instructions recorded. Reason for Referral None Reported. Results Created Date Observation Date Name Description Value Unit Range Abnormal Flag Note LastModifiedBy Organization Detail LastModifiedTime 10/06/19 24 10/06/2023 CBC w/ auto diff CBC with differential Not Available [facility] [address] [place] [address], [id number], 10/06/2023 18:42:58 10/06/19 24 10/06/2023 CBC w/ auto diff WBC 7.6 K/uL 3.8-11 .2 Not Available [facility] [address] [place] [address], [id number], 10/06/2023 18:42:58 10/06/19 24 10/06/2023 CBC w/ auto diff RBC 5.10 M/uL 3.92-5 .10 Not Available [facility] [address] [place] [address], [id number], 10/06/2023 18:42:58 10/06/19 24 10/06/2023 CBC w/ auto diff HGB 15.1 g/dL 11.8-1 5.3 Not Available [facility] [address] [place] [address], 48775, 10/06/2023 18:42:58 10/06/19 24 10/06/2023 CBC w/ auto diff HCT 44.0 % 36.5-4 4.8 Not Available [facility] [address] [place] [address], [id number], 10/06/2023 18:42:58 10/06/19 24 10/06/2023 CBC w/ auto diff MCV 86.3 fL 80.0-9 9.0 Not Available [facility] [address] [place] [address], [id number], 10/06/2023 18:42:58 10/06/19 24 10/06/2023 CBC w/ auto diff MCH 29.6 pg 25.5-3 3.6 Not Available [facility] [address] [place] [address], [id number], 10/06/2023 18:42:58 10/06/19 24 10/06/2023 CBC w/ auto diff MCHC 34.3 g/dL 32.0-3 6.0 Not Available [facility] [address] [place] [address], [id number], 10/06/2023 18:42:58 10/06/19 24 10/06/2023 CBC w/ auto diff RDW-SD 39.9 fL 35.1 - 46.3 Not Available [facility] [address] [place] [address], [id number], 10/06/2023 18:42:58 10/06/19 24 10/06/2023 CBC w/ auto diff plt 283 K/uL 130-40 0 Not Available [facility] [address] [place] [address], 48577, 10/06/2023 18:42:58 10/06/19 24 10/06/2023 CBC w/ auto diff MPV 10.7 fL 9.3-12 .8 Not Available [facility] [address] [place] [address], [id number], 10/06/2023 18:42:58 10/06/19 24 10/06/2023 CBC w/ auto diff ade% 49.5 % 39.8-7 1.3 Not Available [facility] [address] [place] [address], [id number], 10/06/2023 18:42:58 10/06/19 24 10/06/2023 CBC w/ auto diff lym% 36.3 % 19.2-4 7.1 Not Available [facility] [address] [place] [address], [id number], 10/06/2023 18:42:58 10/06/19 24 10/06/2023 CBC w/ auto diff mono% 8.4 % 1.7-12 .0 Not Available [facility] [address] [place] [address], [id number], 10/06/2023 18:42:58 10/06/19 24 10/06/2023 CBC w/ auto diff eos% 4.6 % 0.0-12 .0 Not Available [facility] [address] [place] [address], [id number], 10/06/2023 18:42:58 10/06/19 24 10/06/2023 CBC w/ auto diff baso% 0.9 % 0.0-3. 0 Not Available [facility] [address] [place] [address], 17323, 10/06/2023 18:42:58 10/06/19 24 10/06/2023 CBC w/ auto diff abs ade 3.8 K/uL 1.8-7. 5 Not Available [facility] [address] [place] [address], [id number], 10/06/2023 18:42:58 10/06/19 24 10/06/2023 CBC w/ auto diff abs lym 2.8 K/uL 1.1-3. 3 Not Available [facility] [address] [place] [address], [id number], 10/06/2023 18:42:58 10/06/19 24 10/06/2023 CBC w/ auto diff abs mono 0.6 K/uL 0.1-1. 0 Not Available [facility] [address] [place] [address], 45912, 10/06/2023 18:42:58 10/06/19 24 10/06/2023 CBC w/ auto diff abs eos 0.4 K/uL 0.0-0. 7 Not Available [facility] [address] [place] [address], [id number], 10/06/2023 18:42:58 10/06/19 24 10/06/2023 CBC w/ auto diff abs baso 0.1 K/uL 0.0-0. 2 Not Available [facility] [address] [place] [address], 43752, 10/06/2023 18:42:58 10/06/19 24 10/06/2023 CBC w/ auto diff imm. gran % 0.3 % 0.0-3. 0 Not Available [facility] [address] [place] [address], 62259, 10/06/2023 18:42:58 10/06/19 24 10/06/2023 CBC w/ auto diff NRBC % 0.0 % 0.0-0. 2 Not Available [facility] [address] [place] [address], [id number], 10/06/2023 18:42:58 10/06/19 24 10/06/2023 CMP, serum or plasm a comp. met. panel Not Available [facility] [address] [place] [address], [id number], 10/06/2023 18:59:01 10/06/19 24 10/06/2023 CMP, serum or plasm a sodium 139 mmol/ L 136-14 6 Not Available [facility] [address] [place] [address], 25291, 10/06/2023 18:59:01 10/06/19 24 10/06/2023 CMP, serum or plasm a potassium 3.7 mmol/ L 3.5-5. 1 Not Available [facility] [address] [place] [address], 83443, 10/06/2023 18:59:01 10/06/19 24 10/06/2023 CMP, serum or plasm a chloride 104 mmol/ L 98-110 Not Available [facility] [address] [place] [address], 52999, 10/06/2023 18:59:01 10/06/19 24 10/06/2023 CMP, serum or plasm a CO2 31 mEq/L 20-32 Not Available [facility] [address] [place] [address], [id number], 10/06/2023 18:59:01 10/06/19 24 10/06/2023 CMP, serum or plasm a anion gap 8 mmol/ L 10-22 low Not Available [facility] [address] [place] [address], [id number], 10/06/2023 18:59:01 10/06/19 24 10/06/2023 CMP, serum or plasm a glucose 101 mg/dL 70-100 high Not Available [facility] [address] [place] [address], [id number], 10/06/2023 18:59:01 10/06/19 24 10/06/2023 CMP, serum or plasm a calcium 10.5 mg/dL 8.4-10 .4 high Not Available [facility] [address] [place] [address], 62907, 10/06/2023 18:59:01 10/06/19 24 10/06/2023 CMP, serum or plasm a total protein 7.7 g/dL 6.4-8. 3 Not Available [facility] [address] [place] [address], 82933, 10/06/2023 18:59:01 10/06/19 24 10/06/2023 CMP, serum or plasm a albumin 4.8 g/dL 3.5-5. 3 Not Available [facility] [address] [place] [address], [id number], 10/06/2023 18:59:01 10/06/19 24 10/06/2023 CMP, serum or plasm a ALP 76 U/L 44 - 127 Not Available [facility] [address] [place] [address], 31946, 10/06/2023 18:59:01 10/06/19 24 10/06/2023 CMP, serum or plasm a AST (SGOT) 18 U/L 10-40 Not Available [facility] [address] [place] [address], [id number], 10/06/2023 18:59:01 10/06/19 24 10/06/2023 CMP, serum or plasm a total bilirubin 0.5 mg/dL 0.2-1. 0 Not Available [facility] [address] [place] [address], 13764, 10/06/2023 18:59:01 10/06/19 24 10/06/2023 CMP, serum or plasm a ALT (SGPT) 15 U/L 8-35 Not Available [facility] [address] [place] [address], 17318, 10/06/2023 18:59:01 10/06/19 24 10/06/2023 CMP, serum or plasm a BUN 18 mg/dL 7-21 Not Available [facility] [address] [place] [address], 46032, 10/06/2023 18:59:01 10/06/19 24 10/06/2023 CMP, serum or plasm a creatinine 0.9 mg/dL 0.7-1. 3 Not Available [facility] [address] [place] [address], 79277, 10/06/2023 18:59:01 10/06/19 24 10/06/2023 CMP, serum or plasm a GFR(non-afri can malawian) 65 Not Available [facility] [address] [place] [address], 65917, 10/06/2023 18:59:01 10/06/19 24 10/06/2023 CMP, serum or plasm a GFR() 79 (LITHOGRAPHIC PHOTOGRAPHER MALU KIDNE Y DISEA SE HAS A GFR LESS THAN 60 ML/AK N/1.7 3 MM FOR A PERIO D OF THREE MONTH S OR MORE. ) Not Available [facility] [address] [place] [address], 74016, 10/06/2023 18:59:01 10/18/19 24 10/20/2023 surgi jennyfer patho logy study tissue exam biopsy [facility] [address] [address] Ph. Dino Milan MD, PhD, Medic al Direc tor SHUST ER, DMMAGY Dominguez nt: ALINEI NSON, EBERL E SRUTHI Sampl e ID: [id number] Repor t Statu s: Final :0 1950 Case #: [id number] Age: 73 Y Gende r: F Date Colle cted: 10/17 MRN # : [id number] Date Recei cody: 10/17 Repor dagoberto Date: 10/19 FINAL DIAGN OSIS: Esoph karthik, biops y: -Reac tive gastr oesop hagea l mucos a with few intra epith elial eosin ophil s (up to 5 eosin ophil s per high- power field ) consi stent with reflu x esoph agiti s -No evide nce of intes tinal (Ortiz ett's ) metap lasia -No evide nce of dyspl lenny or malig avery Elect fabricio alexander Verif ied by Kp lopez MD Elect fabricio mancini 10/19 09:04 SPECI MEN SOURC E: Esoph karthik, biops y GROSS DESCR IPTIO N: The speci men conta iner( s) and requi sitio n have the same patie nt name. Recei cody in 10% neutr al buffe red forma trey for forma trey-f ixed paraf fin-e mbedd ed secti ons label ed A, Marlette tt's biops y are three fragm ents of mccormack- wadsworth soft tissu e that are 0.3-0 .5 cm in great est dimen radha. The speci men is entir konstantin submi tted for histo logic study in one casse tte. CLINI JENNYFER INFOR MATIO N: Marlette tt's, GERD. Not Available [facility] [address] [place] [address], [id number], 10/20/2023 10:07:29 04/11/19 25 04/11/2024 ESR (eryt hrocy te sedim entat ion rate) , blood sed rate 6 mm/HR 0 - 30 Not Available [facility] [address] [place] [address], [id number], 04/11/2024 18:09:01 04/11/19 25 04/11/2024 lipid panel , serum lipid profile Not Available [facility] [address] [place] [address], [id number], 04/11/2024 18:16:45 04/11/19 25 04/11/2024 lipid panel , serum cholesterol 132 mg/dL <25-20 0 Not Available [facility] [address] [place] [address], 10741, 04/11/2024 18:16:45 04/11/19 25 04/11/2024 lipid panel , serum triglyceride 138 mg/dL 15-200 Not Available [facility] [address] [place] [address], 33421, 04/11/2024 18:16:45 04/11/19 25 04/11/2024 lipid panel , serum HDL 43 mg/dL >40 Not Available [facility] [address] [place] [address], 50846, 04/11/2024 18:16:45 04/11/19 25 04/11/2024 lipid panel , serum LDL, calculated 61 mg/dL 5-100 Not Available [facility] [address] [place] [address], 32183, 04/11/2024 18:16:45 04/11/19 25 04/11/2024 lipid panel , serum VLDL 28 mg/dL 1-40 Not Available [facility] [address] [place] [address], 55627, 04/11/2024 18:16:45 04/11/19 25 04/11/2024 lipid panel , serum chol/HDL 3.1 ratio 0.0-4. 4 Not Available [facility] [address] [place] [address], 42751, 04/11/2024 18:16:45 04/11/19 25 04/11/2024 CK (crea madison kinas e), total , serum CPK- Not Available [facility] [address] [place] [address], 88814, 04/11/2024 18:16:47 04/11/19 25 04/11/2024 CK (crea madison kinas e), total , serum CPK 97 U/L 30-200 Not Available [facility] [address] [place] [address], [id number], 04/11/2024 18:16:47 04/11/19 25 04/11/2024 C-nav ctive prote in, quant itati ve, serum or plasm a CRP Not Available [facility] [address] [place] [address], [id number], 04/11/2024 18:18:16 04/11/19 25 04/11/2024 C-nav ctive prote in, quant itati ve, serum or plasm a CRP 0.5 mg/dL <0.4-0 .5 Not Available [facility] [address] [place] [address], 75636, 04/11/2024 18:18:16 04/11/19 25 04/11/2024 CMP, serum or plasm a comp. met. panel Not Available [facility] [address] [place] [address], [id number], 04/11/2024 18:24:03 04/11/19 25 04/11/2024 CMP, serum or plasm a sodium 140 mmol/ L 136-14 6 Not Available [facility] [address] [place] [address], 69109, 04/11/2024 18:24:03 04/11/19 25 04/11/2024 CMP, serum or plasm a potassium 4.6 mmol/ L 3.5-5. 1 Not Available [facility] [address] [place] [address], 86698, 04/11/2024 18:24:03 04/11/19 25 04/11/2024 CMP, serum or plasm a chloride 103 mmol/ L 98-110 Not Available [facility] [address] [place] [address], 72498, 04/11/2024 18:24:03 04/11/19 25 04/11/2024 CMP, serum or plasm a CO2 31 mEq/L 20-32 Not Available [facility] [address] [place] [address], [id number], 04/11/2024 18:24:03 04/11/19 25 04/11/2024 CMP, serum or plasm a anion gap 11 mmol/ L 10-22 Not Available [facility] [address] [place] [address], 72298, 04/11/2024 18:24:03 04/11/19 25 04/11/2024 CMP, serum or plasm a glucose 97 mg/dL 70-100 Not Available [facility] [address] [place] [address], 93705, 04/11/2024 18:24:03 04/11/19 25 04/11/2024 CMP, serum or plasm a calcium 10.7 mg/dL 8.4-10 .4 high Not Available [facility] [address] [place] [address], [id number], 04/11/2024 18:24:03 04/11/19 25 04/11/2024 CMP, serum or plasm a total protein 7.5 g/dL 6.4-8. 3 Not Available [facility] [address] [place] [address], 05626, 04/11/2024 18:24:03 04/11/19 25 04/11/2024 CMP, serum or plasm a albumin 4.7 g/dL 3.5-5. 3 Not Available [facility] [address] [place] [address], 97100, 04/11/2024 18:24:03 04/11/19 25 04/11/2024 CMP, serum or plasm a ALP 82 U/L 44 - 127 Not Available [facility] [address] [place] [address], 47995, 04/11/2024 18:24:03 04/11/19 25 04/11/2024 CMP, serum or plasm a AST (SGOT) 18 U/L 10-40 Not Available [facility] [address] [place] [address], 85348, 04/11/2024 18:24:03 04/11/19 25 04/11/2024 CMP, serum or plasm a total bilirubin 0.5 mg/dL 0.2-1. 0 Not Available [facility] [address] [place] [address], 84972, 04/11/2024 18:24:03 04/11/19 25 04/11/2024 CMP, serum or plasm a ALT (SGPT) 14 U/L 8-35 Not Available [facility] [address] [place] [address], 70927, 04/11/2024 18:24:03 04/11/19 25 04/11/2024 CMP, serum or plasm a BUN 9 mg/dL 7-21 Not Available [facility] [address] [place] [address], 86590, 04/11/2024 18:24:03 04/11/19 25 04/11/2024 CMP, serum or plasm a creatinine 0.9 mg/dL 0.7-1. 3 Not Available [facility] [address] [place] [address], [id number], 04/11/2024 18:24:03 04/11/19 25 04/11/2024 CMP, serum or plasm a CKD-epi GFR 67 eGFR was calcu lated using the 2020 CKD-E PI equat ion. (Resident Surgeon malu Kidne y Disea se has an eGFR less than 60 mL/mi n/1.7 3mm for a perio d of three month s or more. ) This calcu latio n has not been valid ated for patie nt ages <18 or >90 years old. Not Available Ma Only - [facility] [address], [place], [address], 04/11/2024 18:24:03 04/29/19 25 04/30/2024 SJS SURGI JENNYFER PATHO LOGY path report [facility] Hospi jammie Depar tment of Labor atory Medic ine [address] [facility] [address] [facility] [place] [address] Telep jim: , exten radha 07 Patho logy Repor t Surgi jennyfer Patho logy Repor t Name: RANDI CHAMPAGNE Speckyler men #: [id number] Age: [birth year] (Age: 73) Locat ion: [id number] BMG Sex: F Proce dure Date: 2024 Hospi jammie #: [id number] Date Recei cody: 2024 Date Repor dagoberto: 2024 Provi jed: KURT HASSAN MD [facility] e: Breas t, right 4:00- 4:30, needl e biops ies Clini jennyfer Histo ry: Right breas t asymm etry at 4 o'rosio ck 4:30, riley ing 9 mm. Preop erati ve Diagn osis: Rule out breas t cance r FINAL DIAGN OSIS: Breas t, right , 4:00 to 4:30, needl e biops ies: -Cole gn breas t tissu e with focal pseud oangi omato us danay al hyper plasi a. -Nega tive for jameskana avery . Gross Descr iptio n: Recei cody in forma trey, label ed with a patie nt label and as righ t 4 4:30 are multi ple 0.3 - 0.[address] cores and fragm ents of white yello w tissu e, appro ximat konstantin 5.5 x 5 x 0.6 cm in aggre gate. The tissu e is prese nt in 11 separ ately desig nated wells , label ed A throu gh K. The radio logis t has not ident ified any areas of inter est. The speci men is entir konstantin submi tted in casse ttes 1 throu gh 9. Pleas e note: The cold ische gregory time for this speci men was less than one hour. It was place d in forma trey at 0845 on for a total time in forma trey of 10 hours and 15 minut es. Gross exami natio n (when appli cable ), inter preta tion, and sign out were perfo rmed at [facility], [address] [place] [address], [place] [address] . Tana ctron icall y Sindhu d Out CECI WILKINS MD Not Available Ma Only - [facility] [address] [place], [place], [facility], 04/30/2024 11:48:46 09/20/19 24 03/09/2022 imagi ng/di agnos tic resul t No observ ation record ed. [email or web address] Not Available 03:52:35 09/20/19 24 03/09/2022 imagi ng/di agnos tic resul t No observ ation record ed. [email or web address] Not Available 03:52:36 10/18/19 24 03/09/2022 imagi ng/di agnos tic resul t No observ ation record ed. Not Available 10/18/2023 19:30:57 10/18/19 24 03/09/2022 imagi ng/di agnos tic resul t No observ ation record ed. Not Available 10/18/2023 19:31:00 10/18/19 24 09/16/2022 imagi ng/di agnos tic resul t No observ ation record ed. Not Available 10/18/2023 19:31:09 11/20/19 24 11/20/2023 US, breas t, unila teral , limit ed [facility] [address] [place] [address] Examin ation: RIGHT BREAST DIGITA L DIAGNO STIC ULTRAS OUND Access ion: [id number] Exam Date: 024 12:16 PM Clinic al Indica tion: Female 73 years of age contin ued approx imatel y six-mo nth follow -up indete rminan t cystic struct ures in the area of known previo us trauma .. Additi onal Pertin ent Histor y: Mammop lasty in 2012. Border line nonsur gicall y excise d left ultras ound biopsy yieldi ng PAS in 2015. Known histor y of cyst(s ). Compar kishore: Right diagno stic mammog zoltan or ultras ound 03/29 right diagno stic ultras ound 03/28 and 06/25 Techni que: Static sonogr aphic graysc trupti images obtain ed and supple mented with Sydni Rhodes gs: Target ed ultras ound perfor med. Previo usly noted 1-2 o'cloc k radian cluste red cystic struct ures with interv al decrea sed promin ence and some areas resolv e. Persis tent areas appear smalle r and has appear ance of evolvi ng gliosi s and/or hemato ma/con tusion . The additi onal previo usly noted cysts labele d #1 at 4:00-4 :30, labele d #2 at 5:30, and #3 at 3:00-3 :30 have resolv ed, consid erably smalle r, and/or with no suspic ious change compar ed to prior studie s given differ ences in techni que. No domina nt suspic ious new three- dimens ional cystic or solid lesion in this region is demons trated . No suspic ious appear ing axilla ry lymph nodes are demons trated . ====== ==== IMPRES RADHA ====== ==== The previo usly demons trated cluste red cystic struct ures at 1:00 to 2:00 have become smalle r in the interv al and/or resolv ed. Simila rly cystic struct ures previo usly noted in the 3:00 throug h 5:30 radian s are stable , smalle r, and/or resolv ed sonogr aphica lly compar ed to prior studie s. Overal l conste llatio n of findin gs consid ered of low malign ant potent ial at this time. Theref ore in the absenc e of clinic al sympto ms it would be reason able to resume bilate ral annual screen ing mammog марина now due in 2024. ====== ====== ====== ====== ====== ==== RECOMM ENDATI ON: Routin e Screen ing Mammog zoltan Bilate ral 2024 ASSESS MENT: ACR BI-RAD S CATEGO RY 2 - BENIGN FINDIN G(S) ====== ====== ====== ====== ====== ==== Ordere d By: ESME Hammond LOPEZ Electr onical ly Signed By: Sushma Lacy MD on 12:47 PM Interp reted By: Sushma Lacy MD, 12:34 PM [email or web address] Ma Only - [facility] [address] [place], [address], 11/21/2023 11:57:27 12/22/1911/20/2023 US, leeanna t, jet tercaryl , limit ed No observ ation record ed. [email or web address] [facility] [address] [place], [address], 12/22/2023 14:06:54 01/01/20 24 03/30/2023 imagi ng/di agnos tic resul t No observ ation record ed. [email or web address] Not Available 10:35:26 01/01/20 24 03/30/2023 imagi ng/di agnos tic resul t No observ ation record ed. [email or web address] Not Available 10:35:26 01/01/20 24 03/30/2023 imagi ng/di agnos tic resul t No observ ation record ed. [email or web address] Not Available 10:35:30 01/01/20 24 05/11/2023 imagi ng/di agnos tic resul t No observ ation record ed. [email or web address] Not Available 10:35:33 01/01/20 24 05/11/2023 imagi ng/di agnos tic resul t No observ ation record ed. [email or web address] Not Available 10:35:34 04/04/1904/04/2024 MAMMO , scree sona, tomos ynthe sis, bilat eral This is a summar y report . The comple te report is availa ble in the patien t's medica l record . If you cannot access the medica l record , please contac t the nina jimenez for a detail ed fax or copy. [facility] [address] [address] [phone] EXAMIN ATION: BILATE RAL SCREEN ING MAMMOG МАРИНА Exam Date: 025 10:28 AM Access ion: [id number] CLINIC AL INDICA TION: 73 years of age female routin e screen ing. COMPAR KISHORE: Screen ing mammog zoltan(s) dating back to 021. TECHNI QUE: Digita l CC & MLO views. Tomosy nthesi s imagin g acquis ition Study read with the assist ance of a [employer] er-aid ed detect ion system . TISSUE DENSIT Y: The breast s are almost entire ly fatty. FINDIN GS: Benign calcif icatio ns and axilla ry lymph nodes. Biopsy clip in the latera l left breast . There is a increa sing fairly well-c ircums cribed two-vi ew nodula r asymme try. No suspic ious groupi ng of microc alcifi cation s, rosana ectura l distor tion, or new domina nt suspic ious nodule otherw ise 3 dimens ionall y demons trated in either breast . IMPRES RADHA: Indete rminat e two-vi ew nodula r asymme try in the inferi or medial right breast . RECOMM ENDATI ON: Additi onal Imagin g, Right ASSESS MENT: ACR BI-RAD S 0 - INCOMP LETE: NEEDS ADDITI ONAL IMAGIN G EVALUA TION ====== ====== ====== ====== ====== ====== ====== === Ordere d By: ESME Davila onical ly Signed By: Tony duran MD on 4:36 PM Interp reted By: Tony duran MD, 4:25 PM [email or web address] Ma Only - [facility] [address] [place], [address], 04/10/2024 14:49:14 04/18/1904/18/2024 US, leeanna hendrix, jet weir , limit ed [address] [address] Examin ation( s): RIGHT DIGITA L DIAGNO STIC MAMMOG ZOLTAN Access ion: [id number], [id number] Exam Date: 1:09 PM Clinic al Indica tion: Female 73 years of age additi onal imagin g indete rminan t asymme try. Compar kishore: Screen ing mammog zoltan 03/30 Techni que: True latera l and multip le spot images . Tomosy nthesi s imagin g acquis ition. Study supple mented with comput er aided detect ion progra m. Static sonogr aphic graysc trupti images obtain ed supple mented with Sydni mascorro. MAMMOG ZOLTAN FINDIN GS: The subcen timete r lower inner anteri or to mid juncti on asymme try of concer n persis ts with minima l variab ility on the true latera l view. On spot imagin g there is persis tence with partia l compre ssibil ity and lobula dagoberto as well as convex contou rs. This appear s to be heavil y develo ping appear ance when compar ed to older prior mammog zoltan from 03/29. Locate d at 4:00/4 :30 spanni ng AP 9 mm. Target ed ultras ound perfor med to furthe r charac terize . Additi onal and scarri ng with areas of fat necros is/oil cysts and scatte red calcif icatio ns throug hout the remain jed of the breast along with fluctu ant waxing waning nodule s compat ible with known histor y of cysts. RIGHT ULTRAS OUND FINDIN GS: Target ed ultras ound Perfor med from 06 02-08 02. At the 4:00/4 :30 radian and amorph ous the probab ly hypoec hoic shadow ing nonpar allel struct ure identi fied. Diffic ult to charac terize size but spans approx imatel y 6 x 5 x 4 mm with volume of 0.03 mL. 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 It is unclea r whethe r this corres ponds with the mammog raphic develo ping asymme try of concer n or repres ent incide ntal ultras ound detect ed findin g potent ially relate d to postsu rgical scarri ng and fat necros is. By criter ia no suspic ious appear ing axilla ry lymph nodes demons trated . ====== ==== IMPRES RADHA ====== ==== 1. Persis tent indete rminan t develo ping right mammog raphic asymme try confir med at 4:00/4 :30. Sonogr aphica lly in this radian and indete rminan t shadow ing amorph ous struct ure noted. It is unclea r whethe r these correl ate or this repres ents incide ntal sonogr aphica lly detect ed findin g especi ally given some slight discor dance noted. Stereo tactic biopsy recomm ended to ensure correl ation and for defini tive histol ogic diagno sis. 2. Additi onal stable and benign findin gs, detail ed above. ====== ====== ====== ====== ====== ==== Findin gs and recomm endati ons convey ed to the [facility] by our depart ment brando rivero as per standa rd protoc ol. RECOMM ENDATI ON: Needle Biopsy Right in 1 Year ASSESS MENT: ACR BI-RAD S CATEGO RY 4 - SUSPIC IOUS FINDIN G(S) ====== ====== ====== ====== ====== ==== Ordere d By: ESME Davila onical ly Signed By: Sushma Lacy MD on 2:26 PM Interp reted By: Sushma Lacy MD, 1:55 PM Sc Only - [facility] [address] [place], [address], 04/18/2024 18:35:37 04/18/19 25 04/18/2024 MAMMO , diagn ostic , digit al, unila teral This is a summar y report . The comple te report is availa ble in the lyric hendrix's medica l record . If you cannot access the medica l record , please contac t the nina jimenez for a detail ed fax or copy. [facility] [address] [address] [phone] Examin ation( s): RIGHT DIGITA L DIAGNO STIC MAMMOG ZOLTAN Access ion: [id number], [id number] Exam Date: 1:09 PM Clinic al Indica tion: Female 73 years of age additi onal imagin g indete rminan t asymme try. Compar kishore: Screen ing mammog zoltan 03/30 Techni que: True latera l and multip le spot images . Tomosy nthesi s imagin g acquis ition. Study supple mented with comput er aided detect ion progra m. Static sonogr aphic graysc trupti images obtain ed supple mented with Sydni r. MAMMOG ZOLTAN FINDIN GS: The subcen timete r lower inner anteri or to mid juncti on asymme try of concer n persis ts with minima l variab ility on the true latera l view. On spot imagin g there is persis tence with partia l compre ssibil ity and lobula dagoberto as well as convex contou rs. This appear s to be heavil y develo ping appear ance when compar ed to older prior mammog zoltan from 03/29. Locate d at 4:00/4 :30 spanni ng AP 9 mm. Target ed ultras ound perfor med to furthe r charac terize . Additi onal and scarri ng with areas of fat necros is/oil cysts and scatte red calcif icatio ns throug hout the remain jed of the breast along with fluctu ant waxing waning nodule s compat ible with known histor y of cysts. RIGHT ULTRAS OUND FINDIN GS: Target ed ultras ound Perfor med from 30- 30. At the 4:00/4 :30 radian and amorph ous the probab ly hypoec hoic shadow ing nonpar allel struct ure identi fied. Diffic ult to charac terize size but spans approx imatel y 6 x 5 x 4 mm with volume of 0.03 mL. 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 It is unclea r whethe r this corres ponds with the mammog raphic develo ping asymme try of concer n or repres ent incide ntal ultras ound detect ed findin g potent ially relate d to postsu rgical scarri ng and fat necros is. By criter ia no suspic ious appear ing axilla ry lymph nodes demons trated . ====== ==== IMPRES RADHA ====== ==== 1. Persis tent indete rminan t develo ping right mammog raphic asymme try confir med at 4:00/4 :30. Sonogr aphica lly in this radian and indete rminan t shadow ing amorph ous struct ure noted. It is unclea r whethe r these correl ate or this repres ents incide ntal sonogr aphica lly detect ed findin g especi ally given some slight discor dance noted. Stereo tactic biopsy recomm ended to ensure correl ation and for defini tive histol ogic diagno sis. 2. Additi onal stable and benign findin gs, detail ed above. ====== ====== ====== ====== ====== ==== Findin gs and recomm endati ons convey ed to the [facility] by our depart ment brando rivero as per standa rd protoc ol. RECOMM ENDATI ON: Needle Biopsy Right in 1 Year ASSESS MENT: ACR BI-RAD S CATEGO RY 4 - SUSPIC IOUS FINDIN G(S) ====== ====== ====== ====== ====== ==== Ordere d By: ESME LOPEZ Electr onical ly Signed By: uSshma Lacy MD on 2:26 PM Interp reted By: Sushma Lacy MD, 1:55 PM [email or web address] Ma Only - [facility] [address] [place], [address], 04/18/2024 16:37:13 04/19/19 25 04/18/2024 MAMMO , diagn ostic , digit al, unila teral No observ ation record ed. [facility] [address] [place], [address], 04/19/2024 14:39:06 04/29/19 25 04/29/2024 mg stere o core BX RT [facility] [address] [address] [phone] EXAM: RIGHT BREAST STEREO TACTIC CORE BIOPSY WITH CLIP PLACEM ENT x1 MG POST PROC DIAG MAMMO Access ion: [id number], [id number] Exam Date: 2/24/2 025 7:46 AM INDICA TION: Persis tent indete rminan t develo ping right mammog raphic asymme try at 4:00/4 :30 spanni ng AP 9 mm. Sonogr aphica lly in this radian and indete rminan t shadow ing amorph ous struct ure noted. It is unclea r whethe r these correl ate or this repres ents incide ntal sonogr aphica lly detect ed findin g especi ally given some slight discor dance noted. Stereo tactic biopsy recomm ended to ensure correl ation and for defini tive histol ogic diagno sis. PROCED URE: Lyric hendrix was referr ed for stereo tactic biopsy of asymme try demons trated on diagno stic study. I provid ed a face-t o-face consul tation prior to the schedu led proced ure. The proced ure, risks, benefi ts, and altern atives explai adryan to the lyric hendrix. Darian hoffman inform ed consen t obtain ed. Prepro cedure timeou t perfor med using 2 patien t identi fiers. Patien t confir med the side and type of proced ure. I briefl y review ed the lyric hendrix's medica tion list in person and verbal ly prior to the proced ure. BIOPSY : After lyric hendrix was placed on the Hologi c PRONE AFFIRM stereo tactic biopsy device with the breast placed throug h a hole in compre ssion target ed asymme try was stereo tactic ally locali zed from medial approa ch. Soumya l steril e mini r techni que was utiliz ed for the entire proced ure includ ing handwa shing with conven tional soap-w ater and/or alcoho l based hand saniti zer. Subseq uently 1% lidoca ine alone and lidoca ine with epinep hrine admini stered for local anesth esia and a small skin damaso was made. The 9 gauge Hologi c Brever a biopsy device was placed and prefir e images confir med the target . After the device was fired, 11 core sample s obtain ed. These were subseq uently x-tammy d. SPECIM EN RADIOG RAPH(S ): The digita l specim en radiog raph obtain ed real-t shaw during active sampli ng, demons trates adequa te sampli ng of tissue . Open heart biopsy clip was then deploy ed at the biopsy site in satisf actory positi on. Sample s sent to [facility]ld[facility] for review . POST PROCED URE MAMMOG ZOLTAN: Digita l mammog zoltan perfor med in a separa te work room demons trates post biopsy change s with small hemato ma and the clip placed . Tissue densit y: The breast tissue is almost entire ly fatty. Patien t tolera dagoberto the proced ure well and there were no immedi ate compli cation s. Writte n and verbal post proced ure care instru ctions given to her prior to her depart ure. IMPRES RADHA: Succes sful stereo tactic biopsy of the asymme try. Open heart biopsy clip [facility] actory positi on. Beverly Goode d By: ESME LPOEZ Electr onical ly Signed By: Love Hassan MD on 1:21 PM Interp reted By: Love Hassan MD, 1:18 PM [email or web address] Ma Only - [facility] [address] [facility], [place], [address], 04/29/2024 14:49:37 04/29/19 25 04/29/2024 MAMMO , diagn ostic , unila teral This is a summar y report . The comple te report is availa ble in the lyric hendrix's medica l record . If you cannot access the medica l record , please contac t the nina jimenez for a detail ed fax or copy. [facility] [address] [address] [phone] EXAM: RIGHT BREAST STEREO TACTIC CORE BIOPSY WITH CLIP PLACEM ENT x1 MG POST PROC DIAG MAMMO Access ion: [id number], [id number] Exam Date: 7:46 AM INDICA TION: Persis tent indete rminan t develo ping right mammog raphic asymme try at 4:00/4 :30 spanni ng AP 9 mm. Sonogr aphica lly in this radian and indete rminan t shadow ing amorph ous struct ure noted. It is unclea r whethe r these correl ate or this repres ents incide ntal sonogr aphica lly detect ed findin g especi ally given some slight discor dance noted. Stereo tactic biopsy recomm ended to ensure correl ation and for defini tive histol ogic diagno sis. PROCED URE: Lyric hendrix was referr ed for stereo tactic biopsy of asymme try demons trated on diagno stic study. I provid ed a face-t o-face consul tation prior to the schedu led proced ure. The proced ure, risks, benefi ts, and altern atives explai adryan to the lyric hendrix. Darian hoffman inform ed consen t obtain ed. Prepro cedure timeou t perfor med using 2 patien t identi fiers. Patien simeon confir med the side and type of proced ure. I briefl y review ed the lyric hendrix's medica tion list in person and verbal ly prior to the proced ure. BIOPSY : After lyric hendrix was placed on the Hologi c PRONE AFFIRM stereo tactic biopsy device with the breast placed throug h a hole in compre ssion target ed asymme try was stereo tactic ally locali zed from medial approa ch. Soumya l steril e mini r techni que was utiliz ed for the entire proced ure includ ing handwa shing with conven tional soap-w ater and/or alcoho l based hand saniti zer. Subseq uently 1% lidoca ine alone and lidoca ine with epinep hrine admini stered for local anesth esia and a small skin damaso was made. The 9 gauge Hologi c Brever a biopsy device was placed and prefir e images confir med the target . After the device was fired, 11 core sample s obtain ed. These were subseq uently x-tammy d. SPECIM EN RADIOG RAPH(S ): The digita l specim en radiog raph obtain ed real-t shaw during active sampli ng, demons trates adequa te sampli ng of tissue . Open heart biopsy clip was then deploy ed at the biopsy site in satisf actory positi on. Sample s sent to [facility] for review . POST PROCED URE MAMMOG ZOLTAN: Digita l mammog zoltan perfor med in a separa te work room demons trates post biopsy change s with small hemato ma and the clip placed . Tissue densit y: The breast tissue is almost entire ly fatty. Patien t tolera dagoberto the proced ure well and there were no immedi ate compli cation s. Writte n and verbal post proced ure care instru ctions given to her prior to her depart ure. IMPRES RADHA: Succes sful stereo tactic biopsy of the asymme try. Open heart biopsy clip in satisf actory positi on. Pathol ogy pendin gThee Ordere d By: ESME Hammond LOPEZ Electr onical ly Signed By: Love Hassan MD on 1:21 PM Interp reted By: Love Hassan MD, 1:18 PM [email or web address] Ma Only - [facility] [address] [place], [address], 04/29/2024 14:49:37 05/01/19 25 04/29/2024 mg stere o core BX RT birad Addend by: LOVE HASSAN on MonMay 01, 2024 12:32: 05 PM [facility] [address] [address] [phone] FINAL PATHOL OGY DIAGNO SIS: Breast , right, 4:00 to 4:30, needle biopsi es: -Benig n breast tissue with focal pseudo angiom atous stroma l hyperp lasia. -Negat allen for malign moisés. RECOMM ENDATI ON: The imagin g and pathol ogy are consid ered concor dant. The focal pseudo angiom atous stroma l hyperp lasia is asympt omatic . This can be follow ed with imagin g. Surger y would be indica dagoberto if patien t sympto matic. 1: Follow -up Diagno stic Mammog zoltan Right in 6 Months ASSESS MENT: ACR BI-RAD S CATEGO RY 3 - PROBAB LY BENIGN FINDIN G(S) Ordere d By: ELIZAB ETH E LOPEZ Electr onical ly Signed By: Love Hassan MD on 12:31 PM Interp reted By: Love Hassan MD, 12:28 PM [facility] [address] [address] [phone] EXAM: RIGHT BREAST STEREO TACTIC CORE BIOPSY WITH CLIP PLACEM ENT x1 MG POST PROC DIAG MAMMO Access ion: [id number], [id number] Exam Date: 7:46 AM INDICA TION: Persis tent indete rminan t develo ping right mammog raphic asymme try at 4:00/4 :30 spanni ng AP 9 mm. Sonogr aphica lly in this radian and indete rminan t shadow ing amorph ous struct ure noted. It is unclea r whethe r these correl ate or this repres ents incide ntal sonogr aphica lly detect ed findin g especi ally given some slight discor dance noted. Stereo tactic biopsy recomm ended to ensure correl ation and for defini tive histol ogic diagno sis. PROCED URE: Lyric hendrix was referr ed for stereo tactic biopsy of asymme try demons trated on diagno stic study. I provid ed a face-t o-face consul tation prior to the schedu led proced ure. The proced ure, risks, benefi ts, and altern atives explai adryan to the lyric hendrix. Darian n inform ed consen t obtain ed. Prepro cedure timeou t perfor med using 2 patien t identi fiers. Patiphoebe t confir med the side and type of proced ure. I briefl y review ed the patien simeon's medica tion list in person and verbal ly prior to the proced ure. BIOPSY : After lyric hendrix was placed on the Hologi c PRONE AFFIRM stereo tactic biopsy device with the breast placed throug h a hole in compre ssion target ed asymme try was stereo tactic ally locali zed from medial approa ch. Soumya l steril e mini r techni que was utiliz ed for the entire proced ure includ ing handwa shing with conven tional soap-w ater and/or alcoho l based hand saniti zer. Subseq uently 1% lidoca ine alone and lidoca ine with epinep hrine admini stered for local anesth esia and a small skin damaso was made. The 9 gauge Hologi c Brever a biopsy device was placed and prefir e images confir med the target . After the device was fired, 11 core sample s obtain ed. These were subseq uently x-tammy d. SPECIM EN RADIOG RAPH(S ): The digita l specim en radiog raph obtain ed real-t shaw during active sampli ng, demons trates adequa te sampli ng of tissue . Open heart biopsy clip was then deploy ed at the biopsy site in [facility] actory positi on. Sample s sent to [facility] for review . POST PROCED URE MAMMOG ZOLTAN: Digita l mammog zoltan perfor med in a separa te work room demons trates post biopsy change s with small hemato ma and the clip placed . Tissue densit y: The breast tissue is almost entire ly fatty. Patien t tolera dagoberto the proced ure well and there were no immedi ate compli cation s. Writte n and verbal post proced ure care instru ctions given to her prior to her depart ure. IMPRES RADHA: Succes sful stereo tactic biopsy of the asymme try. Open heart biopsy clip in [facility] actor positi on. Beverly Goode d By: ESME Hammond LOPEZ Electr onical ly Signed By: Love Hassan MD on 025 1:21 PM Interp reted By: Love Hassan MD, 025 1:18 PM [email or web address] Sc Only - [facility] Rad [address] [facility], [place], [address], 05/02/2024 15:15:03 05/01/19 25 04/29/2024 MAMMO , diagn ostic , unila teral This is a summar y report . The comple te report is availa ble in the patien t's medica l record . If you cannot access the medica l record , please contac t the nina jimenez for a detail ed fax or copy. Addend by: LOVE HASSAN on MonMay 01, 2024 12:32: 05 PM [employer] [address] [id number] [phone] FINAL PATHOL OGY DIAGNO SIS: Breast , right, 4:00 to 4:30, needle biopsi es: -Benig n breast tissue with focal pseudo angiom atous stroma l hyperp lasia. -Negat allen for malign moisés. RECOMM ENDATI ON: The imagin g and pathol ogy are consid ered concor dant. The focal pseudo angiom atous stroma l hyperp lasia is asympt omatic . This can be follow ed with imagin g. Surger y would be indica dagoberto if patien t sympto matic. 1: Follow -up Diagno stic Mammog ozltan Right in 6 Months ASSESS MENT: ACR BI-RAD S CATEGO RY 3 - PROBAB LY BENIGN FINDIN G(S) Ordere d By: ESME LOPEZ Electr onical ly Signed By: Love Hassan MD on 12:31 PM Interp reted By: Love Hassan MD, 12:[address] [phone] EXAM: RIGHT BREAST STEREO TACTIC CORE BIOPSY WITH CLIP PLACEM ENT x1 MG POST PROC DIAG MAMMO Access ion: [id number], [id number] Exam Date: 7:46 AM INDICA TION: Persis tent indete rminan t develo ping right mammog raphic asymme try at 4:00/4 :30 spanni ng AP 9 mm. Sonogr aphica lly in this radian and indete rminan t shadow ing amorph ous struct ure noted. It is unclea r whethe r these correl ate or this repres ents incide ntal sonogr aphica lly detect ed findin g especi ally given some slight discor dance noted. Stereo tactic biopsy recomm ended to ensure correl ation and for defini tive histol ogic diagno sis. PROCED URE: Lyric hendrix was referr ed for stereo tactic biopsy of asymme try demons trated on diagno stic study. I provid ed a face-t o-face consul tation prior to the schedu led proced ure. The proced ure, risks, benefi ts, and altern atives explai adryan to the lyric hendrix. Darian hoffman inform ed consen t obtain ed. Prepro cedure timeou t perfor med using 2 lyric hendrix identi fiers. Patien t confir med the side and type of proced ure. I briefl y review ed the lyric hendrix's medica tion list in person and verbal ly prior to the proced ure. BIOPSY : After lyric hendrix was placed on the Hologi c PRONE AFFIRM stereo tactic biopsy device with the breast placed throug h a hole in compre ssion target ed asymme try was stereo tactic ally locali zed from [facility] approa . Soumya l steril e mini r techni que was utiliz ed for the entire proced ure includ ing handwa shing with conven tional soap-w ater and/or alcoho l based hand saniti zer. Subseq uently 1% lidoca ine alone and lidoca ine with epinep hrine admini stered for local anesth esia and a small skin damaso was made. The 9 gauge Hologi c Brever a biopsy device was placed and prefir e images confir med the target . After the device was fired, 11 core sample s obtain ed. These were subseq uently x-tammy d. SPECIM EN RADIOG RAPH(S ): The digita l specim en radiog raph obtain ed real-t shaw during active sampli ng, demons trates adequa te sampli ng of tissue . Open heart biopsy clip was then deploy ed at the biopsy site in satisf actory positi on. Sample s sent to [facility] for review . POST PROCED URE MAMMOG ZOLTAN: Digita l mammog zoltan perfor med in a separa te work room demons trates post biopsy change s with small hemato ma and the clip placed . Tissue densit y: The breast tissue is almost entire ly fatty. Lyric hendrix tolera dagoberto the proced ure well and there were no immedi ate compli cation s. Writte n and verbal post proced ure care instru ctions given to her prior to her depart ure. IMPRES RADHA: Succes sful stereo tactic biopsy of the asymme try. Open heart biopsy clip in satisf actory positi on. Pathol ogy zachariah baxter Ordere d By: ESME LOPEZ Electr onical ly Signed By: Love Hassan MD on 1:21 PM Interp reted By: Love Hassan MD, 1:18 PM [email or web address] Ma Only - [facility] Rad [address] [place], [address], 05/02/2024 15:15:03 Result Notes None recorded. 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 Not Available [employer] [facility] 4 12:07:10 Hypertensi ve disorder 43603752 Active 2023 Renitaher Reynolds [facility] 5 10:15:26 Psoriasis vulgaris 618634982 Active 2023 Mackenzie Valdez [facility] 5 11:02:17 Osteoarthr itis 175972331 Active 2023 Beba Cr MD [address] [place] [address], [address] , [facility] 4 12:20:00 Mammograph y abnormal 659656323 Active 2023 Katharine Vidal [facility] 5 17:17:19 Muscle pain 72514328 Active 2024 Yas Franklin MD [address] [place], [address] , [facility] 5 11:25:33 Hyperlipid emia 65135241 Active 2024 Yas Franklin MD [address] [place] [address] [place], [address] , [facility] 5 11:26:54 Seborrheic keratosis 751160760 Active 2024 [facility] null, [facility] 5 11:02:03 Melanocyti c nevus of right lower limb 4124304717976 08 Active 2024 [facility], [facility] 5 11:02:03 Melanocyti c nevus of right upper limb 118659800 Active 2024 [facility], [facility] 5 11:02:03 Lentigo - freckle 664122102 Active 2024 [facility] 5 11:02:03 Onychomyco sis 038538218 Active 2024 [facility], [facility] 5 11:02:23 Verruca vulgaris 55397196 Active 2024 [facility], [facility] 5 12:10:59 Immunosupp ression 30523637 Active 2024 [facility], [facility] 5 12:11:18 Actinic keratosis 478608240 Active 2024 [facility] 12:11:33 Sebaceous gland hypertroph y 365527410 Active 2024 [facility] 5 12:17:22 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 5 10:15:22 Non-alcoho lic fatty liver 833141370 Active [address] [facility] 5 10:16:37 Steatosis of liver 657297341 Active [address] [facility] 5 10:16:42 Problem Notes None recorded. Procedures Surgical History Date Name Laterality Status Provider Name and Address Organization Details Recorded Time 04/29/19 25 BIOPSY, BREAST, PERCUTANEOUS; WITH STEREOTACTIC GUIDANCE (SURG) completed Xenia Stevens [facility] 05/02/2024 10:30:33 09/19/19 24 SC Fibroscan completed Amilcar Cash MD [facility], [address], [facility] 09/19/2023 15:22:47 Removal of gallbladder completed Not Available Health Note 08/21/2023 14:46:40 Partial hysterectomy completed Not Available Health Note 08/21/2023 14:46:40 Imaging Results Imaging Date Name Status LastModified by Organiz ation Details LastModified Time 03/09/2022 imaging/diagnos tic result completed Information not available 09/20/2023 03:52:35 03/09/2022 imaging/diagnos tic result completed Information not available 09/20/2023 03:52:36 03/09/2022 imaging/diagnos tic result completed [email or web address] Information not available 10/18/2023 19:30:57 03/09/2022 imaging/diagnos tic result completed Information not available 10/18/2023 19:31:00 09/16/2022 imaging/diagnos tic result completed Information not available 10/18/2023 19:31:09 11/20/2023 US, breast, unilateral, limited completed arsen Ma Only - [facility] [address] [place], [address], 11/21/2023 11:57:27 11/20/2023 US, breast, unilateral, limited completed terri [facility] [address] [place], [address], 12/22/2023 14:06:54 03/30/2023 imaging/diagnos tic result completed Information not available 01/01/2024 10:35:26 03/30/2023 imaging/diagnos tic result completed Information not available 01/01/2024 10:35:26 03/30/2023 imaging/diagnos tic result completed Information not available 01/01/2024 10:35:30 05/11/2023 imaging/diagnos tic result completed Information not available 01/01/2024 10:35:33 05/11/2023 imaging/diagnos tic result completed Information not available 01/01/2024 10:35:34 04/04/2024 MAMMO, screening, tomosynthesis, bilateral completed [email or web address] Sc Only - [facility] [address] [place], [address], 04/10/2024 14:49:14 04/18/2024 US, breast, unilateral, limited completed [email or web address] Sc Only - [facility] [address] [place], [address], 04/18/2024 18:35:37 04/18/2024 MAMMO, diagnostic, digital, unilateral completed [email or web address] Sc Only - [facility] [address] [place], [address], 04/18/2024 16:37:13 04/18/2024 MAMMO, diagnostic, digital, unilateral completed pearl [facility] [address] [place], [address], 04/19/2024 14:39:06 04/29/2024 mg stereo core BX RT birad completed [email or web address] Sc Only - [facility] [address] [place], [address], 04/29/2024 14:49:37 04/29/2024 MAMMO, diagnostic, unilateral completed [email or web address] Sc Only - [facility] [address] [place], [address], 04/29/2024 14:49:37 04/29/2024 mg stereo core BX RT birad completed [id number] Sc Only - [facility] [address] [place], [address], 05/02/2024 15:15:03 04/29/2024 MAMMO, diagnostic, unilateral completed [id number] Sc Only - [facility] [address] [place], [address], 05/02/2024 15:15:03 Procedure Notes None recorded. Medical Equipment None Reported. Allergies Allergen ID Allergen Name Allergen Category Reaction Reaction Severity Criticality Documentation Date Start Date Code Code System Note Provider Name and Address Organization Details Recorded Time 590659 Biaxin medicatio n Not available Not available Not available 04/03/2023200972 9 RxNorm React ion: Other : oral thrus h; Not Available Not Available Not Available 863937 cefazolin sodium medicatio n Not available Not available Not available 04/03/2023201317 1 RxNorm React ion: Other : oral thrus h; Not Available Not Available Not Available 405710 tramadol hydrochlo ride medicatio n vomiting Not available Not available 04/03/20232012 59486 RxNorm React ion: Vomit ing; Not Available Not Available Not Available Medications Name Sig Start Date Stop Date Status Note LastModified by Organization Details LastModified Time Prescript ion - New 04/11 completed Deckhand Maintenance: MILLIE (ANUP CLIFFORDI ONED), BEBA (Rheumat ology) , sPrescri ption Form Not Available Not Available Not Available pravastat in 40 mg tablet TAKE 1 TABLET BY MOUTH ONCE DAILY AT BEDTIME active Not Available Not Available No t Available benzonata te 200 mg capsule TAKE 1 CAPSULE BY MOUTH THREE TIMES DAILY NEEDED FOR COUGH 08/22 completed Not Available Not Available Not Available hydrocodo ne 5 mg-acetam inophen 325 mg tablet TAKE 1 TO 2 TABLETS BY MOUTH EVERY 6 HOURS NEEDED . DO NOT EXCEED 6 PER 24 HOURS 08/22 completed Not Available Not Available Not Available diltiazem CD 240 mg capsule,e xtended release 24 hr TAKE 1 CAPSULE BY MOUTH ONCE DAILY active Not Available Not Available No t Available lisinopri l 20 mg tablet TAKE 1 TABLET BY MOUTH ONCE DAILY IN THE EVENING active Not Available Not Available No t Available sulfameth oxazole 800 mg-trimet hoprim 160 mg tablet TAKE 1 TABLET BY MOUTH TWICE DAILY UNTIL GONE 08/22 completed Not Available Not Available Not Available omeprazol e 20 mg capsule,d elayed release TAKE 1 CAPSULE BY MOUTH ONCE DAILY active Not Available Not Available No t Available lisinopri l 20 mg-hydroc hlorothia zide 25 mg tablet TAKE 1 TABLET BY MOUTH ONCE DAILY IN THE MORNING active Not Available Not Available No t Available codeine 10 mg-guaife nesin 100 mg/5 mL oral liquid TAKE 1 TO 2 TEASPOON FUL BY MOUTH EVERY 6 HOURS OR JUST AT BEDTIME 08/22 completed Not Available Not Available Not Available ergocalci ferol (vitamin D2) 1,250 mcg (50,000 unit) capsule TAKE 1 CAPSULE BY MOUTH ONCE A WEEK FOR 12 WEEKS 10/05 completed Not Available Not Available Not Available Vitamin D3 active pt unsure of start date and dose, pt states pt takes one per day of over the counter suppleme nt Not Available Not Available Not Available Humira active Not Available Not Availa ble Not Available Vitals Date Recorded Heart rate Body height Body mass index (BMI) Body weight Systolic blood pressure Diastolic blood pressure Provider Name and Address Organization Details Last Updated DateTime 5 85 /min 160.02 cm 28.3 kg/m2 54456.3 4 g 116 mm[Hg] 86 mm[Hg] Mlaa De Leon [facility] 5 10:41:05 Date Recorded Body height Body mass index (BMI) Body weight Heart rate Oxygen saturation Oxygen saturation in Arterial blood by Pulse oximetry Pain severity - 0-10 verbal numeric rating [Score] - Reported Systolic blood pressure Diastolic blood pressure Provider Name and Address Organization Details Last Updated DateTime 160.02 cm 28.3 kg/m2 40515.3 4 g 64 /min 98 % 98 % 0 124 mm[Hg] 78 mm[Hg] Brissa Jansen [facility] 5 12:48:16 Date Recorded Body height Provider Name an d Address Organization Details Last Updated DateTime 05/13/2024 160.02 cm Mackenzie Valdez [facility] 05/13/2024 12:04:36 Date Recorded Body height Body mass index (BMI) Body weight Systolic blood pressure Diastolic blood pressure Provider Name and Address Organization Details Last Updated DateTime 05/16/2024 160.02 cm 28.5 kg/m2 98353.37 g 126 mm[Hg] 80 mm[Hg] Shasta Ford [facility] 5 16:06:26 Social History Question Answer Notes LastModified by Organizat ion Details LastModified Time Do You Have An Advance Directive? Yes [email or web address] Information not available 10/04/2023 What Is Your Level Of Alcohol Consumption? Occasional [email or web address] Information not available 10/04/2023 How Many Times Per Week Do You Consume Alcohol? Less Than 1 Time Per Week [email or web address] Information not available 10/04/2023 What Is Your Level Of Caffeine Consumption? Moderate [email or web address] Information not available 10/04/2023 What Is Your Code Status? Full Code [email or web address] Information not available 10/04/2023 Are You Currently Employed? No [email or web address] Information not available 10/04/2023 What Is Your Occupation? Retired [email or web address] Information not available 10/04/2023 How Many Times Per Week Do You Exercise? Less Than 1 Time Per Week [email or web address] Information not available 10/04/2023 Do You Have A Medical Power Of Projection Printer? Yes [email or web address] Information not available 10/04/2023 What Was The Date Of Your Most Recent Tobacco Screening? 10/06/2023 [email or web address] Information not available 10/04/2023 What Is Your Relationship Status? [email or web address] Information not available 10/04/2023 Do You Use Any Illicit Or Recreational Drugs? No [email or web address] Information not available 10/04/2023 Sex: Unknown Functional Status Question Answer Note LastModified by Organizat ion Details LastModified Time What is your exercise level? Occasional [email or web address] Information not available 10/04/2023 Mental Status None recorded. Family History Relationship Description Onset Age of this Age Resolved Age Notes LastModified by Organization Details LastModified Time Unspecified Relation Hypertensive disorder [email or web address] Not available 2023 14:46:39 Son Chronic obstructive pulmonary disease [email or web address] Not available 2023 11:52:48 Son Hypertensive disorder [email or web address] Not available 2023 11:52:49 Son Hypercholest erolemia [email or web address] Not available 2023 11:52:49 Sister Hypertensive disorder [email or web address] Not available 2023 11:52:49 Medical History Condition Response High Blood Pressure Y COPD N Depression N Anxiety Disorder N Arthritis Y Cancer N Stroke N Fibromyalgia N Kidney Disease N Bleeding Disorder N Asthma N Seizures N Attention-deficit Hyperactivity Disorder N Thyroid Problems N Anemia N Diabetes N Hyperlipidemia N Heart Disease N Osteoporosis N Gynecological HistoryNo gynecological history recorded. Obstetrics History GPAL:G 0 P 0 0 0 0 Immunizations Vaccine Type Date Status Note Provider Nam e and Address Organization Details Recorded Time Influenza, split virus, quadrivalent, preservative 8 completed Flaca Sanabria [facility] 10/06/2023 11:19:02 Influenza, split virus, quadrivalent, preservative 9 completed Flaca Sanabria [facility] 10/06/2023 11:19:02 zoster recombinant 4 completed Flaca Sanabria [facility] 10/06/2023 11:19:02 Influenza, high-dose, quadrivalent, PF 2 completed Flaca Sanabria [facility] 10/06/2023 11:19:02 Influenza, high-dose, quadrivalent, PF 3 completed Flaca Sanabria [facility] 10/06/2023 11:19:02 Influenza, adjuvanted, quadrivalent, PF 1 completed [facility] 10/06/2023 11:19:02 COVID-19, mRNA, LNP-S, PF, 30 mcg/0.3 mL dose 1 completed [facility] 10/06/2023 11:19:02 COVID-19, mRNA, LNP-S, PF, 30 mcg/0.3 mL dose 1 completed [facility] 10/06/2023 11:19:02 COVID-19, mRNA, LNP-S, PF, 30 mcg/0.3 mL dose 1 completed [facility] 10/06/2023 11:19:02 Pneumococcal conjugate PCV20, polysaccharide [id number] conjugate, adjuvant, PF 3 completed [facility] 10/06/2023 11:19:02 COVID-19, mRNA, LNP-S, bivalent, PF, 30 mcg/0.3 mL dose 2 completed [facility] 10/06/2023 11:19:02 COVID-19, mRNA, LNP-S, PF, 50 mcg/0.5 mL 3 completed [facility] 10/06/2023 11:19:02 COVID-19, mRNA, LNP-S, PF, 50 mcg/0.5 mL 3 completed [facility] 10/06/2023 11:19:02 pneumococcal polysaccharide PPV23 6 completed [facility] 10/06/2023 11:19:02 zoster live 4 completed [facility] 10/06/2023 11:19:02 Influenza, split virus, trivalent, preservative 8 completed [facility] 10/06/2023 11:19:02 Influenza, split virus, trivalent, preservative 9 completed [facility] 10/06/2023 11:19:02 Influenza, split virus, trivalent, preservative 3 completed [facility] 10/06/2023 11:19:02 Influenza, split virus, trivalent, PF 6 completed [facility] 10/06/2023 11:19:02 Influenza, split virus, quadrivalent, PF 0 completed [facility] 10/06/2023 11:19:02 Past Encounters Encounter ID Performer Location Encounter Start Date Encounter Closed Date Diagnosis/Indication Diagnosis SNOMED-CT Code Diagnosis ICD10 Code Diagnosis Note [id number] Renita Rosa, LICENSED ACUPUNCTURIST, REVIEW ANALYST [address] [facility] ([place]) [address] [facility],[address] [place] [phone] 08/23/2023 13:57:15 08/23/2023 14:42:07 Ulloa's esophagus 270798082 K22.70 Non-alcoho lic fatty liver 313818635 K76.0 [id number] Amilcar Cash MD [address] [place] [phone] 09/19/2023 10:35:51 09/19/2023 11:04:31 Steatosis of liver 321444363 K76.0 [id number] Yas Franklin MD [facility] ([place]) [address] [place] [address] 10/06/2023 11:07:50 10/06/2023 15:16:04 Psoriatic arthritis 469972586 L40.50 Drug-induc ed immunodeficiency 128785927 D84.821 Ulloa's esophagus 3029 79299 K22.70 Hypertensive disorder 38 006783 I10 Non-alcoho lic fatty liver 604644043 K76.0 [id number] Beba Cr MD [address] [facility] [place] ([place]) [address] [place] [address] 10/09/2023 11:45:54 10/09/2023 18:31:27 Psoriatic arthritis 615094366 L40.50 Osteoarthritis 149028758 M19.90 intermission coordinator current use of adalimumab therapy 7358530923 12662 Z79.313 [id number] Tomas Sánchez MD [facility] GI Anesthesi a S [address] [place] [address] 10/18/2023 12:30:06 10/27/2023 09:19:35 [id number] Amilcar Cash MD [facility] [place] ([place]) [address] [address] 10/18/2023 12:30:09 10/26/2023 14:44:47 [id number] Yas Franklin MD [facility] ([place]) [address] [place] [phone] 04/10/2024 10:27:05 04/10/2024 11:39:55 Muscle pain 08772112 M79.10 Ulloa's esophagus 3029 38464 K22.70 Hyperlipidemia 89002645 E78.49 Psoriatic arthritis 1563 20176 L40.50 [id number] Beba Cr MD [address] [place] [address] [place] ([place]) [address] [place] [address] 04/11/2024 11:39:12 04/12/2024 18:40:23 [id number] Tc Byrnes APRN, REVIEW ANALYST [address] [place]erm ([place]) [address] [place] [phone] 05/13/2024 11:51:20 05/13/2024 12:19:57 Melanocytic nevus of right upper limb 185181724 D22.61 Melanocyti c nevus of right lower limb 7660042848 62079 D22.71 Seborrheic keratosis 394 721830 L82.1 Lentigo - freckle 176010 006 L81.4 Psoriasis vulgaris 63758 5007 L40.0 Verruca vulgaris 3743085 3 B07.9 Immunosuppression 831157 05 D84.9 Actinic keratosis 666721 007 L57.0 Sebaceous gland hypertrophy 835946332 L73.8 [id number] Sara Chery MD, FACS [address] [place] [address] [place]urg ([place]) [address] [place] [address] 05/16/2024 15:33:26 05/16/2024 16:44:44 Pseudoangiomatous stromal hyperplasia of breast 8530396909 10727 N64.89 Mammography abnormal 168 286492 R92.8 Health Concerns Section Related Observation LastModified by Organization Detai ls LastModified Time None Recorded Concern Status LastModified by Organization Details LastModified Time None Recorded Advance Directives Directive Y: Payers Encounter Date Sequence Insurance Name Policy Number Policy Candelaria Covered Member ID Candelaria Member ID Guarantor Name 10/18/2023 1 [employer] (MEDICARE REPLACEMENT PPO) [id number] Cathleen A Pineda [id number] Cathleen Sruthi Pineda 04/10/2024 1 [employer] (MEDICARE REPLACEMENT PPO) [id number] Cathleen A Pineda [id number] Cathleen Sruthi KenyonPineda 04/11/2024 1 [employer] (MEDICARE REPLACEMENT PPO) [id number] L Cathleen A Pineda [id number] Cathleen Sruthi Pineda 05/13/2024 1 [employer] (MEDICARE REPLACEMENT PPO) [id number] L Cathleen A Pindea [id number] Cathleen Sruthi Pineda 05/16/2024 1 [employer] (MEDICARE REPLACEMENT PPO) [id number] L Cathleen A Pineda [id number] Cathleenclaudia Pineda Notes Date Note Type Note Provider Name and Address Organization Details Recorded Time 4 text/html The history and physical dated {{DATE 08/22/2023}} completed by {{ H.ey#}}has been reviewed, the patient has been examined and no change has occurred in the patient s condition since the history and physical was completed. Amilcar Cash MD [address] [place] [address], [phone], [facility] 10/18/2023 14:10:50 4 text/html [facility] PRE-ANESTHETIC EVALUATIONReported bypatient.Reason for Visit:PROPOSED PROCEDURE: EGD; SURGEON: Shreya; PREOP DIAGNOSIS: Ulloa's esophagus w/out dysplasia- Review of Systems General:Exercise tolerance moderate; Denies SOB, CURRIE, PND; Denies chest pain or chest tightness Cardiac:Denies any cardiopulmonary disease; Hypertension; Hyperlipidemia GI:GERD ; Ulloa's esophagus Musculoskeletal:Osteoart hritis Prior Anesthetic Complication:no history of anesthesia complications Family Anesthetic Hx:no history of anesthesia complications Testing/ResultsCBC Date: 10/06/23; HBG results: 15.1; HCT results: 44.0; Platelets results: 283; BMP/CMP Date: 10/06/23; BUN results: 18; Creatine results: 0.9; Potassium results: 3.7 Physical Exam: AirwayMP II TeethWNL NeckFull range of motion CardiovascularRegular rate and rhythm RespiratoryClear to auscultation bilaterally GastrointestinalNPO status >6 hrs solids, >2 hrs clear liquids Vital Signs:Vital signs reviewed. Please refer to nursing preop note for values Assessment:ASA PS: II Plan:MAC Discussion:I have discussed with the patient the anesthetic plan, alternatives, pertinent risks, and complications; including but not limited to PONV, dental injury, sore throat, AK, stroke, etc. All questions were answered. Patient verbalize(s) understanding and agree(s) to proceed. Tomas Sánchez MD [address] [place] [address], [phone], [facility] 10/18/2023 13:57:01 5 text/html Cathleen Pinedais a 73 year oldfemalepresenting for care. She has psoriatic arthritis, Ulloa's esophagus, hyperlipidemia and hypertension. She continues on medications for these concerns. She has a lot of caregiver stress. Her has dementia. He is becoming more agitated and aggressive. This is her second and so she is meeting with all of her stepchildren this weekend to talk about putting him in a jail or care facility. She can no longer do it by herself. Her [id number] stepped in and is helping her with this. She sees Dr. Pineda of the oil dispatcher tomorrow. She has had increasing stiffness. She has been on Humira. She had an EGD in 2023 to evaluate her Ulloa's esophagus. She continues on omeprazole. When she gets a lot of heartburn she will take bicarbonate of soda with some good results. She is current with her flu shot and her COVID shot. She needs to see the dentist. She sees her eye doctor regularly. Her last mammogram was in March. They saw a spot that was unusual and she has a follow-up appointment on April 18. Yas Franklin MD [address] [place] [address], [phone], [facility] 04/16/2024 19:57:15 5 text/html The patient is a 73-year-old female with psoriatic arthritis and psoriasis vulgaris, who is here for a followup visit. She continues on her HUMIRA therapy. She reports aside from some inactivity gelling in her quadriceps and lower legs after sitting for 10-15 minutes, she otherwise is doing quite well. She rates her pain a 0/10 on a scale. Her morning stiffness is lasting 5-10 minutes in duration. The patient reports tolerating her HUMIRA therapy well without postinjection reactions at the skin. No postdosing headache, nausea, vomiting, abdominal pain, muscle cramps or neurologic complaints. She keeps as active as possible. She does report that approximately 12 days out from each injection she starts to encounter some breakthrough swelling and increased stiffness, but it is mild and tolerable. She will use Tylenol in the morning, taking roughly 1 g each morning to help ease some of her musculoskeletal complaints. She does not require the use of an assistive device for ambulation. She is very active and completes all of her own ADLs. She denies any increased frequency of infections. No fever or chills, sinus complaints or sore throat, neck swelling, lymph node swelling, cough, pleurisy, shortness of breath, chest pain or palpitations, or orthopnea. No dysuria or gross hematuria or bleeding from the nares or gums. Her appetite is normal.tabitha Cr MD [address] [place] [address], [phone], [facility] 04/15/2024 09:19:09 5 text/html TBSE Patient was informed that Dr. Bustamante is the supervising physician for Tc Byrnes (Derm) and the physician is available for consultation if needed. Tc Byrnes, YECENIA, REVIEW ANALYST [address] [place] [address], [phone], [facility] 05/14/2024 20:00:18 text/html Cathleen is seen today after right breast biopsy reveals PASH. She has a history of left breast PASH on biopsy, not excised in 2016She was kicked in the right breast by a horse last year with extensive hematoma Her bilateral screening mammogram 04/04/2024 shows a nodular asymmetry in the inferior medial right breast. Diagnostic right mammogram 04/18/2024 shows a persistent indeterminate right asymmetry at 4-4 30. Ultrasound shows an amorphous shadowing structure. Stereotactic right biopsy 04/29/2024 at 4-4 30 of 9 mm asymmetry consisting of 11 cores from a 9 gauge biopsy device shows benign breast tissue with focal PASH. Imaging is concordant Her first menstrual cycle is at age 10. She is G4, P3 with first at 19. She has a 9-year history of control pills at age 18. No HRT or infertility treatments. She has cysts in both breasts and has had 1 right and left breast biopsy as detailed above. No history of breast surgeries or breast cancer. No radiation therapy or chemotherapy. She has had general anesthesia without problem and is not on a blood thinner. Family history:Father b ladder cancer at 61No family history of breast, ovarian, or pancreatic cancer. LTR T-C 5% ERUM JORGE APRN [address] [place] [address], [phone], [facility] 05/20/2024 11:40:59 OBGyn Episode No OBEpisode recorded.
--- OUTSIDE RECORDS SUMMARY | 2024-05-23 18:57 | XMS_ITS | Encounter Summary ---
Author Organization [facility] Address Formerly [facility] [place] [address] Care Team Providers Care Tram Driver Name Role Phone Lesvia Aguirre MD Primary Care Provider [phone] Yas Rodriguez MD Primary Care Provider + [phone] Encounter Details Date Type Department Care Team (Late Contact Info) Description 05/20/2017 Abstract [facility] CONVERSION [address] [place] [address] , Amaris Yo MD Social History Tobacco Use Types Packs/Day Years Used Date Smoking Tobacco: Never Assessed Comments Unknown Sex and Gender Information Value Date Recorded Sex Assigned at Not on file 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 Gender Identity Not on file Sexual Orientation Not on file documented as of this encounter Plan of Treatment Upcoming Encounters Date Type Department Care Team (Late Contact Info) Description 10/29/2024 11:00 AM CDT Appointment [facility] [place] [facility] - Mammography [address] [place] [phone] [place] [address] [place], [place] [phone] documented as of this encounter Visit Diagnoses Not on filedocumented in this encounter Care Teams Tram Driver Relationship Specialty Start Date End Date Lesvia Aguirre MD PCP - General FAMILY PRACTICE 09/29/17 04/23/18 [place] [address] [place] [address] PCP - General INTERNAL MEDICINE 04/24/18 documented as of this encounter
--- OUTSIDE RECORDS SUMMARY | 2024-05-23 18:58 | XMS_ITS | Clinical Summary ---
Author Organization [facility] Address [address] [place] [address] Care Team Providers Care Lye Boiler Name Role Phone Unavailable Primary Care Provider Unavailabl e Immunizations Immunization Administration Dates Next Due Covid-19, Mrna, Lnp-s, Pf, 30 Mcg/0.3 Ml Dose (P fizer) 12/01/2020 Social History Tobacco Use Types Packs/Day Years Used Date Smoking Tobacco: Never Assessed Comments Unknown Sex and Gender Information Value Date Recorded Sex Assigned at Not on file Legal Sex Female 3:56 PM CDT Gender Identity Not on file Sexual Orientation Not on file Plan of Treatment Health Maintenance Due Date Last Done Comments Hepatitis C Virus (HCV) Screening 1950 TdaP Immunization 1950 Colonoscopy 07/17/1995 Colorectal Cancer Screening 07/17/1995 Cologuard 2000 Immunochemical Fecal Occult Blood 2000 Pneumococcal Immunization (5 0+ years) (1 of 1 - PCV) 2000 Zoster Immunization (1 of 2) 2000 Influenza Immunization (#1) 2023 SARS-COV-2 Immunization (2 - season) 2023 12/01/2020 Respiratory Syncytial Virus (RSV) Immunization (Adult) (1 - 1-dose 75+ series) 2025 Mammogram Discontinued 11/26/2020, 10/13/2020 Hepatitis B Immunization Aged Out No longer eligible based on patient's age to complete this topic Meningococcal Immunization (ACWY) Aged Out No longer eligible based on patient's age to complete this topic Rotavirus Immunization Aged Out No lo nger eligible based on patient's age to complete this topic
[2024-05-23] MEDS: NITROGLYCERIN SL 0.4 MG TABLET SUBLINGUAL (20:20)
[2024-05-23] MEDS: GLUCAGON FOR INJ 1 MG VIAL IV PUSH (20:20)
--- NOTE | 2024-05-23 20:21 | ED.GENADULT ---
HPI - General Adult General Chief complaint: Skin/Abscess/Foreign Body Stated complaint: Meat stuck in throat, not swallowing secretions- Time Seen by Provider: 05/23/24 20:10 History of Present Illness HPI narrative: Patient is a 73-year-old female who presents emergency department with chief complaint of esophageal food impaction. The patient reports she was eating steak at a restaurant took a bite steak and since she has not been able to swallow secretions. The patient states she has spit up her saliva reports she feels as though something is stuck in her throat patient reports no shortness of breath denies difficulty with breathing Related Data Home Medications ?Medication ?Instructions ?Recorded ?Confirmed ?Last Taken ?Type diltiazem HCl 240 mg 240 mg PO DAILY 11/08/23 11/08/23 Unknown History capsule,extended release 24 hr lisinopril 20 mg tablet 20 mg PO QPM 11/08/23 11/08/23 Unknown History lisinopril 20 1 tablet PO QAM 11/08/23 11/08/23 Unknown History mg-hydrochlorothiazide 25 mg tablet omeprazole 20 mg capsule,delayed 20 mg PO DAILY 11/08/23 11/08/23 Unknown History release pravastatin 40 mg tablet 40 mg PO HS 11/08/23 11/08/23 Unknown History Allergies Allergy/AdvReac Type Severity Reaction Status Date / Time cefazolin (From Ancef) AdvReac Nausea and Verified 05/23/24 18:55 Vomiting clarithromycin (From Biaxin) AdvReac Nausea and Verified 05/23/24 18:55 Vomiting tramadol AdvReac Nausea and Verified 05/23/24 18:55 Vomiting Review of Systems Review of Systems: A 10 system review of systems was completed on the patient and is negative except for what is stated in the HPI. Nursing and ancillary documentation was reviewed. Exam Narrative: GENERAL: Well-appearing, well-nourished, and in no acute distress. HEAD: Normocephalic, atraumatic. EYES: PERRLA and EOMI. ENT: Nares clear, no rhinorrhea or epistaxis. Mucous membranes moist. Patient is sitting up oral secretions NECK: Supple. CHEST: Clear to auscultation. No respiratory distress. HEART: Regular rate and rhythm. No murmur heard. Normal peripheral pulses. ABDOMEN: Soft, nontender, nondistended, normal active bowel sounds. EXTREMITIES: Normal range of motion. No edema. SKIN: Warm, dry, no rash. NEURO: No focal deficits. Alert and oriented x3. PSYCH: Normal mood and affect. Course Vital Signs Vital signs: Vital Signs Temperature 36.8 C 05/23/24 19:38 Pulse Rate 76 05/23/24 19:38 Respiratory Rate 16 05/23/24 19:38 Blood Pressure 160/78 H 05/23/24 19:38 Pulse Oximetry 98 05/23/24 19:38 Oxygen Delivery Room Air 05/23/24 19:38 Temperature 36.8 C 05/23/24 19:38 Pulse Rate 76 05/23/24 19:38 Respiratory Rate 16 05/23/24 19:38 Blood Pressure 160/78 H 05/23/24 19:38 Pulse Oximetry 98 05/23/24 19:38 Oxygen Delivery Room Air 05/23/24 19:38 Medical Decision Making MDM Narrative Medical decision making narrative: Differential diagnosis includes esophageal food impaction, Attempts were made to give the patient glucagon and nitroglycerin in the emergency department without success of clearing the obstruction. The case was discussed with GI on-call who will take patient to the GI lab Vital Signs Vital Signs: Vital Signs Temperature 36.8 C 05/23/24 19:38 Pulse Rate 76 05/23/24 19:38 Respiratory Rate 16 05/23/24 19:38 Blood Pressure 160/78 H 05/23/24 19:38 Pulse Oximetry 98 05/23/24 19:38 Oxygen Delivery Room Air 05/23/24 19:38 Temperature 36.8 C 05/23/24 19:38 Pulse Rate 76 05/23/24 19:38 Respiratory Rate 16 05/23/24 19:38 Blood Pressure 160/78 H 05/23/24 19:38 Pulse Oximetry 98 05/23/24 19:38 Oxygen Delivery Room Air 05/23/24 19:38 Discharge Plan Discharge Clinical Impression: Food impaction of esophagus Patient Disposition: Still a Patient Condition: Stable Patient Language: French Prescriptions: No Action pravastatin 40 mg tablet 40 mg PO HS diltiazem HCl 240 mg capsule,extended release 24hr 240 mg PO DAILY lisinopril 20 mg tablet 20 mg PO QPM omeprazole 20 mg capsule,delayed release(DR/EC) 20 mg PO DAILY lisinopril-hydrochlorothiazide 20-25 mg tablet 1 tablet PO QAM Follow-up/Referrals: UNKNOWN,DOCTOR [Primary Care Provider] - Time of Disposition: 21:08
--- OUTSIDE RECORDS SUMMARY | 2024-05-23 20:22 | XMS_ITS | Encounter Summary ---
Author Organization [facility] Address [address] [place] [id number] Care Team Providers Care Bakery Clerk Name Role Phone Yas Rodriguez MD Primary Care Provider [phone] Encounter Details Date Type Department Care Team (Late Contact Info) Description 08/11/2018 Abstract [facility] CONVERSION [address] [place] [address] , Generic Conversion, Social History Tobacco Use Types Packs/Day Years Used Date Smoking Tobacco: Never Assessed Comments Unknown Sex and Gender Information Value Date Recorded Sex Assigned at Not on file Legal Sex Female 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 Gender Identity Not on file Sexual Orientation Not on file documented as of this encounter Plan of Treatment Upcoming Encounters Date Type Department Care Team (Late Contact Info) Description 10/29/2024 11:00 AM CDT Appointment [facility] [address] [place] [phone] [place] [address] [place], [place] [phone] documented as of this encounter Visit Diagnoses Not on filedocumented in this encounter Care Teams Bakery Clerk Relationship Specialty [place] [address] [place], [place] [phone] PCP - General INTERNAL MEDICINE 04/24/18 documented as of this encounter
--- OUTSIDE RECORDS SUMMARY | 2024-05-23 20:22 | XMS_ITS | Clinical Summary ---
Author Organization [facility] Address Pending sale to [facility] [place] [address] Care Team Providers Care Maintenance Helper Name Role Phone Yas Lopez MD Primary Care Provider [phone]- [phone] Allergies Active Allergy Reactions Criticality Noted Date [...] Department Care Team Description 04/29/2024 7:46 AM LACE ROLLER OPERATOR - 04/29/2024 11:59 PM LACE ROLLER OPERATOR Hospital Encounter [facility] - Mammography [address] [place] [address] Yas Lopez MD Discharge Disposition: Home or Self Care (Routine Discharge) 04/29/2024 Travel 04/18/2024 1:10 PM LACE ROLLER OPERATOR - 04/18/2024 11:59 PM LACE ROLLER OPERATOR Hospital Encounter [facility] - Ultrasound [address] [place] [address] Yas Lopez MD Discharge Disposition: Home or Self Care (Routine Discharge) 04/18/2024 1:09 PM LACE ROLLER OPERATOR Hospital Encounter [facility] - Mammography [address] [place] [address] Yas Lopez MD Discharge Disposition: Home or Self Care (Routine Discharge) 04/18/2024 Travel 04/04/2024 10:28 AM LACE ROLLER OPERATOR - 04/04/2024 11:59 PM LACE ROLLER OPERATOR Hospital Encounter [facility] - Mammography [address] [place] [address] Yas Lopez MD Discharge Disposition: Home or [...] on file Legal Sex Female 9:27 PM LACE ROLLER OPERATOR Gender Identity Not on file Sexual [...] Info) Description 10/29/2024 11:00 AM CDT Appointment [facility] Office Building - Mammography [address] [place] [phone] [place] [address] [place], [place] [phone] Health Maintenance Due Date Last Done Comments [...] BX RT BIRAD Routine 04/29/2024 9:05 AM LACE ROLLER OPERATOR Abnormal mammogram MG POST PROC RT DIAG MAMMO Routine 04/29/2024 8:50 AM LACE ROLLER OPERATOR Abnormal mammogram PATHOLOGY Routine 04/29/2024 12:00 AM LACE ROLLER OPERATOR US BREAST RT BIRAD LTD Routine 04/18/2024 2:23 PM LACE ROLLER OPERATOR Abnormal mammogram MG DIAG ADD VIEW RT DIGI Routine 04/18/2024 1:27 PM LACE ROLLER OPERATOR Abnormal mammogram MG SCREENING W BÁRBARA PRIYA DIGI Routine 04/04/2024 10:40 AM LACE ROLLER OPERATOR Encounter for screening mammogram for malignant neoplasm of breast from Last 3 Months Results * MG STEREO CORE BX RT BIRAD (04/29/2024 9:05 AM LACE ROLLER OPERATOR) Anatomical Region Laterality Modality Breast Right Radiographic Leanna ging RIGHT BREAST STRUCTURE / Unknown 04/29/2024 1:18 PM LACE ROLLER OPERATOR Addenda Addendum by Víctor Hassan MD on 05/01/2024 12:32 PM LACE ROLLER OPERATOR [facility] [address] [address] [phone] FINAL PATHOLOGY DIAGNOSIS: Breast, right, 4:00 to [...] 05/01/2024 12:28 PM Impressions 04/29/2024 1:21 PM LACE ROLLER OPERATOR IMPRESSION: Successful stereotactic biopsy of the asymmetry. Open heart biopsy clip in satisfactory position. Pathology pending. Ordered By: YAS LOPEZ Interpreted By: Víctor Hassan MD, 04/29/2024 1:18 PM Narrative 04/29/2024 1:21 PM LACE ROLLER OPERATOR [facility] [address] [address] [phone] EXAM: RIGHT BREAST STEREOTACTIC CORE BIOPSY WITH CLIP PLACEMENT x1 MG POST PROC DIAG MAMMO [id number] Exam Date: 04/29/2024 7:46 AM INDICATION: Persistent [...] demonstrated on diagnostic study. I provided a [id number]-gf-[id number] consultation prior to the scheduled procedure. The procedure, risks, benefits, and alternatives explained to the patient. Written informed consent obtained. Preprocedure timeout performed using 2 patient identifiers. Patient confirmed the side and type of procedure. I briefly reviewed the patient's medication list in person and verbally prior to the procedure. BIOPSY: After patient was placed on the [employer] PRONE AFFIRM stereotactic biopsy device with the breast placed through a hole in compression targeted asymmetry was stereotactically localized from medial approach. Maximal sterile barrier technique was utilized for the entire procedure including handwashing with conventional soap-water and/or alcohol based hand bsa/aml compliance officer. Subsequently 1% lidocaine alone and lidocaine with epinephrine administered for local anesthesia and a small skin dmaaso was made. The 9 gauge [employer] Brevera biopsy device was placed and prefire [...] Procedure Note Víctor Hassan MD - 04/29/2024 [facility] [address] [address] [phone] EXAM: RIGHT BREAST STEREOTACTIC CORE BIOPSY WITH CLIP PLACEMENT x1 MG POST PROC DIAG MAMMO [id number] Exam Date: 04/29/2024 7:46 AM INDICATION: Persistent [...] asymmetrydemonstrated on diagnostic study. I provided a mejh-to-ovge consultationprior to the scheduled procedure. The procedure, risks, benefits, andalternatives explained to the patient. Written informed consent obtained.Preprocedure timeout performed using 2 patient identifiers. Patientconfirmed the side and type of procedure. I briefly reviewed the patient'smedication list in person and verbally prior to the procedure. BIOPSY: After patient was placed on the [employer] PRONE AFFIRM stereotacticbiopsy device with the breast placed through a hole in compressiontargeted asymmetry was stereotactically localized from medial approach.Maximal sterile barrier technique was utilized for the entire procedureincluding handwashing with conventional soap- water and/or alcohol basedhand bsa/aml compliance officer. Subsequently 1% lidocaine alone and lidocaine withepinephrine administered for local anesthesia and a small skin damaso wasmade. The 9 gauge [employer] biopsy device was placed and prefireimages confirmed [...] PROC RT DIAG MAMMO (04/29/2024 8:50 AM LACE ROLLER OPERATOR) Anatomical Region Laterality Modality Breast Right Radiographic Leanna ging 04/29/2024 1:18 PM LACE ROLLER OPERATOR Addenda Addendum by Víctor Hassan MD on 05/01/2024 12:32 PM LACE ROLLER OPERATOR [facility] [address] [address] [phone] FINAL PATHOLOGY DIAGNOSIS: Breast, right, 4:00 to [...] 05/01/2024 12:28 PM Impressions 04/29/2024 1:21 PM LACE ROLLER OPERATOR IMPRESSION: Successful stereotactic biopsy of the asymmetry. Open heart biopsy clip in satisfactory position. Pathology pending. Ordered By: YAS LOPEZ Interpreted By: Víctor Hassan MD, 04/29/2024 1:18 PM Narrative 04/29/2024 1:21 PM LACE ROLLER OPERATOR [facility] [address] [address] [phone] EXAM: RIGHT BREAST STEREOTACTIC CORE BIOPSY WITH CLIP PLACEMENT x1 MG POST PROC DIAG MAMMO [id number] Exam Date: 04/29/2024 7:46 AM INDICATION: Persistent [...] demonstrated on diagnostic study. I provided a qnfx-oc-qyrh consultation prior to the scheduled procedure. The procedure, risks, benefits, and alternatives explained to the patient. Written informed consent obtained. Preprocedure timeout performed using 2 patient identifiers. Patient confirmed the side and type of procedure. I briefly reviewed the patient's medication list in person and verbally prior to the procedure. BIOPSY: After patient was placed on the [employer] PRONE AFFIRM stereotactic biopsy device with the breast placed through a hole in compression targeted asymmetry was stereotactically localized from medial approach. Maximal sterile barrier technique was utilized for the entire procedure including handwashing with conventional soap-water and/or alcohol based hand bsa/aml compliance officer. Subsequently 1% lidocaine alone and lidocaine with epinephrine administered for local anesthesia and a small skin damaso was made. The 9 gauge [employer] Brevera biopsy device was placed and prefire [...] Procedure Note Víctor Hassan MD - 04/29/2024 [facility] [address] [address] [phone] EXAM: RIGHT BREAST STEREOTACTIC CORE BIOPSY WITH CLIP PLACEMENT x1 MG POST PROC DIAG MAMMO [id number] Exam Date: 04/29/2024 7:46 AM INDICATION: Persistent [...] asymmetrydemonstrated on diagnostic study. I provided a zdso-di-ueum consultationprior to the scheduled procedure. The procedure, risks, benefits, andalternatives explained to the patient. Written informed consent obtained.Preprocedure timeout performed using 2 patient identifiers. Patientconfirmed the side and type of procedure. I briefly reviewed the patient'smedication list in person and verbally prior to the procedure. BIOPSY: After patient was placed on the [employer] PRONE AFFIRM stereotacticbiopsy device with the breast placed through a hole in compressiontargeted asymmetry was stereotactically localized from medial approach.Maximal sterile barrier technique was utilized for the entire procedureincluding handwashing with conventional soap- water and/or alcohol basedhand bsa/aml compliance officer. Subsequently 1% lidocaine alone and lidocaine withepinephrine administered for local anesthesia and a small skin damaso wasmade. The 9 gauge [employer] Brevera biopsy device was placed and prefireimages [...] - Final * Pathology (04/29/2024 12:00 AM LACE ROLLER OPERATOR) PATHOLOGY [facility] Department of Laboratory Medicine [address] [place] [phone] , extension [phone] Pathology Report Surgical Pathology Report Name: CATHLEEN PALMER Specimen #: [id number] Age: 5 1950 (Age: 73) Location: [facility] Sex: F Procedure Date: 04/29/2024 Hospital #: [id number] Date Received: 04/29/2024 Date Reported: 04/30/2024 Provider: [...] interpretation, and sign out were performed at [facility], [address] [place] [address]. Electronically Signed Out KENDALL WILKINS MD [facility] 04/29/2024 04/29/2024 2:3 4 PM LACE ROLLER OPERATOR Comment:Breast, right 4:00-4 :30, needle biopsies Yas Lopez MD PATHOLOGY/CYTOLOGY ORDERAB LES Final Result Performing Organization Address City/State/[facility] Co de Phone Number [facility] [address] [place] [phone], [id number] * BREAST RT BIRAD LTD (04/18/2024 2:23 PM LACE ROLLER OPERATOR) Anatomical Region Laterality Modality Breast Right Ultrasound 04/18/2024 1:55 PM LACE ROLLER OPERATOR Narrative 04/18/2024 2:26 PM LACE ROLLER OPERATOR [address] [address] Examination(s): RIGHT DIGITAL DIAGNOSTIC MAMMOGRAM [id number] Exam Date: 04/18/2024 1:09 PM Clinical Indication: [...] ADD VIEW RT DIGI (04/18/2024 1:27 PM LACE ROLLER OPERATOR) Anatomical Region Laterality Modality Breast Right Radiographic Leanna ging 04/18/2024 1:55 PM LACE ROLLER OPERATOR Narrative 04/18/2024 2:26 PM LACE ROLLER OPERATOR [facility] [address] [address] [phone] Examination(s): RIGHT DIGITAL DIAGNOSTIC MAMMOGRAM [id number] Exam Date: 04/18/2024 1:09 PM Clinical Indication: [...] W BÁRBARA PRIYA DIGI (04/04/2024 10:40 AM LACE ROLLER OPERATOR) Anatomical Region Laterality Modality Breast Bilateral Mammography 04/04/2024 4:25 PM LACE ROLLER OPERATOR Impressions 04/04/2024 4:36 PM LACE ROLLER OPERATOR IMPRESSION: Indeterminate two-view nodular asymmetry in the inferior medial right breast. RECOMMENDATION: Additional Imaging, Right ASSESSMENT: ACR BI-RADS 0 - INCOMPLETE: NEEDS ADDITIONAL IMAGING EVALUATION Ordered By: YAS LOPEZ Interpreted By: Tony Kraus MD, 04/04/2024 4:25 PM Narrative 04/04/2024 4:36 PM LACE ROLLER OPERATOR [facility] [address] [address] [phone] EXAMINATION: BILATERAL SCREENING MAMMOGRAPHY Exam Date: 04/04/2024 [...] Last 3 Months Insurance [employer] Care Teams Maintenance Helper Relationship Specialty [place] [address] [place] [address] PCP - General INTERNAL MEDICINE 04/24/18
--- OUTSIDE RECORDS SUMMARY | 2024-05-23 20:22 | XMS_ITS | Clinical Summary ---
Author Organization [facility] Address [address] [place] [address] Care Team Providers Care Internal Communications Writer Name Role Phone Unavailable Primary Care Provider [...]
--- OUTSIDE RECORDS SUMMARY | 2024-05-23 20:22 | XMS_ITS | Encounter Summary ---
Author Organization [facility] Address Formerly [facility] [place] [address] Care Team Providers Care Debridging Machine Operator Name Role Phone Lesvia Aguirre MD Primary Care Provider [phone] Yas Rodriguez MD Primary Care Provider + [phone] Encounter Details Date Type Department Care Team (Late Contact Info) Description 05/20/2017 Abstract [facility] CONVERSION [address] [place] [address] , Amaris Yo MD Social History Tobacco Use Types Packs/Day Years Used Date Smoking Tobacco: Never Assessed Comments Unknown Sex and Gender Information Value Date Recorded Sex Assigned at Not on file 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 Gender Identity Not on file Sexual Orientation Not on file documented as of this encounter Plan of Treatment Upcoming Encounters Date Type Department Care Team (Late Contact Info) Description 10/29/2024 11:00 AM CDT Appointment [facility] [place] Office Building - Mammography [address] [place] [address] [place] [address] [place], [place] [phone] documented as of this encounter Visit Diagnoses Not on filedocumented in this encounter Care Teams Debridging Machine Operator Relationship Specialty Start Date End Date Lesvia Aguirre MD PCP - General FAMILY PRACTICE 09/29/17 04/23/18 [place] [address] [place] [address] PCP - General INTERNAL MEDICINE 04/24/18 documented as of this encounter
--- NOTE | 2024-05-23 21:14 | PC.NURSE ---
No change in condition with medication or drinking. EDP made aware.
--- NOTE | 2024-05-23 21:53 | WPDANESEPPF ---
Anes - Initial Pre Proc Eval Procedure: Operation Date: 05/23/24 21:50 Proposed Procedures p Esophagogastroduodenoscopy - Luis Alberto Franks MD Date/Time: 05/23/24 21:53 Surgeon: Lupillo Pre Op Diagnosis: esophageal impaction- food bolus Pre Op Diagnosis: Meat stuck in throat, not swallowing secretions- Patient Data Age: 73 Gender: F Height: 1.6 m Weight: 72.7 kg Last Vital Signs Temp 36.8 C 05/23/24 19:38 Pulse 76 05/23/24 19:38 Resp 16 05/23/24 19:38 BP 160/78 H 05/23/24 19:38 Pulse Ox 98 05/23/24 19:38 O2 Del Method Room Air 05/23/24 19:38 Allergies Allergy/AdvReac Type Severity Reaction Status Date / Time cefazolin (From Ancef) AdvReac Nausea and Verified 05/23/24 18:55 Vomiting clarithromycin (From Biaxin) AdvReac Nausea and Verified 05/23/24 18:55 Vomiting tramadol AdvReac Nausea and Verified 05/23/24 18:55 Vomiting Home Medications ?Medication ?Instructions ?Recorded ?Confirmed ?Type diltiazem HCl 240 mg 240 mg PO DAILY 11/08/23 11/08/23 History capsule,extended release 24 hr lisinopril 20 mg tablet 20 mg PO QPM 11/08/23 11/08/23 History lisinopril 20 1 tablet PO QAM 11/08/23 11/08/23 History mg-hydrochlorothiazide 25 mg tablet omeprazole 20 mg capsule,delayed 20 mg PO DAILY 11/08/23 11/08/23 History release pravastatin 40 mg tablet 40 mg PO HS 11/08/23 11/08/23 History Patient hx anesthesia problems: none Family hx anesthesia problems: none Results Review: All pre-operative results and documents have been reviewed as part of the pre-operative evaluation. [facility] Comments Hypertension Anes - Eval Final PreProcedure Day of Procedure 05/23/24 21:53 Patient weight: normal Heart: regular rate and rhythm Lungs: normal air movement Airway: Mallampati scale class II Neurological: alert and oriented Last oral intake: 4 hours ASA classification: II Emergent: yes Anesthetic plan: proceed Anesthesia type and monitoring: general ETT and standard monitoring Results Review: All pre-operative results and documents have been reviewed as part of the pre-operative evaluation. Informed Consent: The patient's anesthetic plan and its attendant risks and benefits were discussed with the patient/family/POA. Questions were solicited and answers provided to the satisfaction of the patient/family/POA.
--- NOTE | 2024-05-23 22:17 | PM.HPGS ---
History of Present Illness History of Present Illness Consent: Risks, benefits, and alternatives have been discussed and questions answered. Patient agrees to proceed with procedure. Chief complaint: Meat stuck in throat, not swallowing secretions- Narrative: Cathleen Pineda is a 73 year old female here with food bolus after had steak pizza, h/o gerd on omeprazole, had EGD in the past but no history of similar episode Review of Systems Review of Systems: All systems reviewed & are unremarkable except as noted in HPI and below Meds Home Medications and Allergies Home Medications ?Medication ?Instructions ?Recorded ?Confirmed ?Type diltiazem HCl 240 mg 240 mg PO DAILY 11/08/23 11/08/23 History capsule,extended release 24 hr lisinopril 20 mg tablet 20 mg PO QPM 11/08/23 11/08/23 History lisinopril 20 1 tablet PO QAM 11/08/23 11/08/23 History mg-hydrochlorothiazide 25 mg tablet omeprazole 20 mg capsule,delayed 20 mg PO DAILY 11/08/23 11/08/23 History release pravastatin 40 mg tablet 40 mg PO HS 11/08/23 11/08/23 History Allergies Allergy/AdvReac Type Severity Reaction Status Date / Time cefazolin (From Ancef) AdvReac Nausea and Verified 05/23/24 18:55 Vomiting clarithromycin (From Biaxin) AdvReac Nausea and Verified 05/23/24 18:55 Vomiting tramadol AdvReac Nausea and Verified 05/23/24 18:55 Vomiting Vital Signs Vital Signs - 24 hr 05/23/24 19:38 Temperature 98.3 F Pulse Rate 76 Respiratory Rate 16 Blood Pressure 160/78 H Pulse Oximetry 98 Oxygen Delivery Room Air Exam Const: General: comfortable and no acute distress HENMT: Face/Nose/Sinus: Normal nares present Eyes: General: appearance normal, both eyes and all related structures Neck: Neck: no JVD Resp: Auscultation: clear to auscultation bilaterally Cardio: Rate: regular rate Rhythm: regular rhythm GI: Inspection: non-distended GI Palp: Yes Soft to palpation Skin: General skin exam: normal color Neuro: Speech: normal speech Extrem: General: normal to inspection Psych: Mental Status: mental status grossly normal Assessment and Plan Assessment and plan (1) Food impaction of esophagus: Code(s): T18.128A - Food in esophagus causing other injury, initial encounter; W44.F3XA - Food entering into or through a natural orifice, initial encounter Status: Acute Assessment and Plan: urgent egd
[2024-05-23] MEDS: LACTATED RINGERS 1,000 ML 150 ML IV CONT (22:22)
--- OUTSIDE RECORDS SUMMARY | 2024-05-23 22:56 | XMS_ITS | Clinical Summary ---
Author Organization [facility] Address [address] [place] [address] Care Team Providers Care Systems Support Specialist Name Role Phone Unavailable Primary Care Provider [...]
--- OUTSIDE RECORDS SUMMARY | 2024-05-23 22:56 | XMS_ITS | Encounter Summary ---
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 Gender Identity Not on file Sexual Orientation Not on file documented as of this encounter Plan of Treatment Upcoming Encounters Date Type Department Care Team (Late Contact Info) Description 10/29/2024 11:00 AM CDT Appointment [facility] [place] [facility] [address] [place] [phone] [place] [address] [place], [place] [phone] documented as of this encounter Visit Diagnoses Not on filedocumented in this encounter Care Teams Senior Programmer Relationship Specialty [place] [address] [place], [place] [phone] PCP - General INTERNAL MEDICINE 04/24/18 documented as of this encounter
--- OUTSIDE RECORDS SUMMARY | 2024-05-23 22:56 | XMS_ITS | Clinical Summary ---
Author Organization [facility] Address [facility] [place] [address] Care Team Providers Care Right Of Way Buyer Name Role Phone Yas Lopez MD Primary Care Provider [phone] Allergies Active Allergy Reactions Criticality Noted Date [...] Department Care Team Description 04/29/2024 7:46 AM ROLL FORMING MACHINE SET UP MECHANIC - 04/29/2024 11:59 PM ROLL FORMING MACHINE SET UP MECHANIC Hospital Encounter [facility] [place] - Mammography [address] [place] [address] Yas Lopez MD Discharge Disposition: Home or Self Care (Routine Discharge) 04/29/2024 Travel 04/18/2024 1:10 PM ROLL FORMING MACHINE SET UP MECHANIC - 04/18/2024 11:59 PM ROLL FORMING MACHINE SET UP MECHANIC Hospital Encounter [facility] [place] - Ultrasound [address] [place] [phone] Yas Lopez MD Discharge Disposition: Home or Self Care (Routine Discharge) 04/18/2024 1:09 PM ROLL FORMING MACHINE SET UP MECHANIC Hospital Encounter [facility] [place] - Mammography [address] [place] [address] Yas Lopez MD Discharge Disposition: Home or Self Care (Routine Discharge) 04/18/2024 Travel 04/04/2024 10:28 AM ROLL FORMING MACHINE SET UP MECHANIC - 04/04/2024 11:59 PM ROLL FORMING MACHINE SET UP MECHANIC Hospital Encounter [facility] [place] - Mammography [address] [place] [address] Yas Lopez MD Discharge Disposition: Home or [...] on file Legal Sex Female 9:27 PM ROLL FORMING MACHINE SET UP MECHANIC Gender Identity Not on file Sexual Orientation [...] Info) Description 10/29/2024 11:00 AM CDT [facility]ointment [facility] - Mammography [address] [place] [address] [phone] [place] [address] [place], [place] [id number] Health Maintenance Due Date Last Done Comments [...] BX RT BIRAD Routine 04/29/2024 9:05 AM ROLL FORMING MACHINE SET UP MECHANIC Abnormal mammogram MG POST PROC RT DIAG MAMMO Routine 04/29/2024 8:50 AM ROLL FORMING MACHINE SET UP MECHANIC Abnormal mammogram PATHOLOGY Routine 04/29/2024 12:00 AM ROLL FORMING MACHINE SET UP MECHANIC US BREAST RT BIRAD LTD Routine 04/18/2024 2:23 PM ROLL FORMING MACHINE SET UP MECHANIC Abnormal mammogram MG DIAG ADD VIEW RT DIGI Routine 04/18/2024 1:27 PM ROLL FORMING MACHINE SET UP MECHANIC Abnormal mammogram MG SCREENING W BÁRBARA PRIYA DIGI Routine 04/04/2024 10:40 AM ROLL FORMING MACHINE SET UP MECHANIC Encounter for screening mammogram for malignant neoplasm of breast from Last 3 Months Results * MG STEREO CORE BX RT BIRAD (04/29/2024 9:05 AM ROLL FORMING MACHINE SET UP MECHANIC) Anatomical Region Laterality Modality Breast Right Radiographic Leanna ging RIGHT BREAST STRUCTURE / Unknown 04/29/2024 1:18 PM ROLL FORMING MACHINE SET UP MECHANIC Addenda Addendum by Víctor Hassan MD on 05/01/2024 12:32 PM ROLL FORMING MACHINE SET UP MECHANIC [facility] [address] [address] [phone] FINAL PATHOLOGY DIAGNOSIS: Breast, right, 4:00 to [...] 05/01/2024 12:28 PM Impressions 04/29/2024 1:21 PM ROLL FORMING MACHINE SET UP MECHANIC IMPRESSION: Successful stereotactic biopsy of the asymmetry. Open heart biopsy clip in satisfactory position. Pathology pending. Ordered By: YAS LOPEZ Interpreted By: Víctor Hassan MD, 04/29/2024 1:18 PM Narrative 04/29/2024 1:21 PM ROLL FORMING MACHINE SET UP MECHANIC [facility] [address] [address] [phone] EXAM: RIGHT BREAST STEREOTACTIC CORE BIOPSY WITH CLIP PLACEMENT x1 MG POST PROC DIAG MAMMO [id number] Exam Date: 04/29/2024 7:46 AM INDICATION: Persistent [...] demonstrated on diagnostic study. I provided a [id number]-vk-[id number] consultation prior to the scheduled procedure. The procedure, risks, benefits, and alternatives explained to the patient. Written informed consent obtained. Preprocedure timeout performed using 2 patient identifiers. Patient confirmed the side and type of procedure. I briefly reviewed the patient's medication list in person and verbally prior to the procedure. BIOPSY: After patient was placed on the Wozityou PRONE AFFIRM stereotactic biopsy device with the breast placed through a hole in compression targeted asymmetry was stereotactically localized from medial approach. Maximal sterile barrier technique was utilized for the entire procedure including handwashing with conventional soap-water and/or alcohol based hand autographer. Subsequently 1% lidocaine alone and lidocaine with epinephrine administered for local anesthesia and a small skin damaso was made. The 9 gauge Wozityou Brevera biopsy device was placed and prefire [...] Procedure Note Víctor Hassan MD - 04/29/2024 [facility] [address] [address] [phone] EXAM: RIGHT BREAST STEREOTACTIC CORE BIOPSY WITH CLIP PLACEMENT x1 MG POST PROC DIAG MAMMO [id number] Exam Date: 04/29/2024 7:46 AM INDICATION: Persistent [...] asymmetrydemonstrated on diagnostic study. I provided a ilzq-bu-jffd consultationprior to the scheduled procedure. The procedure, risks, benefits, andalternatives explained to the patient. Written informed consent obtained.Preprocedure timeout performed using 2 patient identifiers. Patientconfirmed the side and type of procedure. I briefly reviewed the patient'smedication list in person and verbally prior to the procedure. BIOPSY: After patient was placed on the Wozityou PRONE AFFIRM stereotacticbiopsy device with the breast placed through a hole in compressiontargeted asymmetry was stereotactically localized from medial approach.Maximal sterile barrier technique was utilized for the entire procedureincluding handwashing with conventional soap- water and/or alcohol basedhand autographer. Subsequently 1% lidocaine alone and lidocaine withepinephrine administered for local anesthesia and a small skin damaso wasmade. The 9 gauge Ecriovera biopsy device was placed and prefireimages confirmed [...] PROC RT DIAG MAMMO (04/29/2024 8:50 AM ROLL FORMING MACHINE SET UP MECHANIC) Anatomical Region Laterality Modality Breast Right Radiographic Leanna ging 04/29/2024 1:18 PM ROLL FORMING MACHINE SET UP MECHANIC Addenda Addendum by Víctor Hassan MD on 05/01/2024 12:32 PM ROLL FORMING MACHINE SET UP MECHANIC [facility] [address] [address] [phone] FINAL PATHOLOGY DIAGNOSIS: Breast, right, 4:00 to [...] 05/01/2024 12:28 PM Impressions 04/29/2024 1:21 PM ROLL FORMING MACHINE SET UP MECHANIC IMPRESSION: Successful stereotactic biopsy of the asymmetry. Open heart biopsy clip in satisfactory position. Pathology pending. Ordered By: YAS LOPEZ Interpreted By: Víctor Hassan MD, 04/29/2024 1:18 PM Narrative 04/29/2024 1:21 PM ROLL FORMING MACHINE SET UP MECHANIC [facility] [address] [address] [phone] EXAM: RIGHT BREAST STEREOTACTIC CORE BIOPSY WITH CLIP PLACEMENT x1 MG POST PROC DIAG MAMMO [id number] Exam Date: 04/29/2024 7:46 AM INDICATION: Persistent [...] demonstrated on diagnostic study. I provided a icav-op-mmvl consultation prior to the scheduled procedure. The procedure, risks, benefits, and alternatives explained to the patient. Written informed consent obtained. Preprocedure timeout performed using 2 patient identifiers. Patient confirmed the side and type of procedure. I briefly reviewed the patient's medication list in person and verbally prior to the procedure. BIOPSY: After patient was placed on the Wozityou PRONE AFFIRM stereotactic biopsy device with the breast placed through a hole in compression targeted asymmetry was stereotactically localized from medial approach. Maximal sterile barrier technique was utilized for the entire procedure including handwashing with conventional soap-water and/or alcohol based hand autographer. Subsequently 1% lidocaine alone and lidocaine with epinephrine administered for local anesthesia and a small skin damaso was made. The 9 gauge Wozityou Brevera biopsy device was placed and prefire [...] Procedure Note Víctor Hassan MD - 04/29/2024 [facility] [address] [address] [phone] EXAM: RIGHT BREAST STEREOTACTIC CORE BIOPSY WITH CLIP PLACEMENT x1 MG POST PROC DIAG MAMMO [id number] Exam Date: 04/29/2024 7:46 AM INDICATION: Persistent [...] asymmetrydemonstrated on diagnostic study. I provided a iebx-jv-alym consultationprior to the scheduled procedure. The procedure, risks, benefits, andalternatives explained to the patient. Written informed consent obtained.Preprocedure timeout performed using 2 patient identifiers. Patientconfirmed the side and type of procedure. I briefly reviewed the patient'smedication list in person and verbally prior to the procedure. BIOPSY: After patient was placed on the Wozityou PRONE AFFIRM stereotacticbiopsy device with the breast placed through a hole in compressiontargeted asymmetry was stereotactically localized from medial approach.Maximal sterile barrier technique was utilized for the entire procedureincluding handwashing with conventional soap- water and/or alcohol basedhand autographer. Subsequently 1% lidocaine alone and lidocaine withepinephrine administered for local anesthesia and a small skin damaso wasmade. The 9 gauge Wozityou Brevera biopsy device was placed and prefireimages [...] - Final * Pathology (04/29/2024 12:00 AM ROLL FORMING MACHINE SET UP MECHANIC) PATHOLOGY [facility] Department of Laboratory Medicine [address] [place] [address] , extension [phone] Pathology Report Surgical Pathology Report Name: CATHLEEN PALMER Specimen #: [id number] Age: 5 1950 (Age: 73) Location: [facility] Sex: F Procedure Date: 04/29/2024 Hospital #: [id number] Date Received: 04/29/2024 Date Reported: 04/30/2024 Provider: [...] interpretation, and sign out were performed at [facility], [address] [place] [address]. Electronically Signed Out KENDALL WILKINS MD [facility] 04/29/2024 04/29/2024 2:3 4 PM ROLL FORMING MACHINE SET UP MECHANIC Comment:Breast, right 4:00-4 :30, needle biopsies Yas Lopez MD PATHOLOGY/CYTOLOGY ORDERAB LES Final Result Performing Organization Address City/State/[facility] Co de Phone Number [facility] [address] [place] [phone], [id number] * BREAST RT BIRAD LTD (04/18/2024 2:23 PM ROLL FORMING MACHINE SET UP MECHANIC) Anatomical Region Laterality Modality Breast Right Ultrasound 04/18/2024 1:55 PM ROLL FORMING MACHINE SET UP MECHANIC Narrative 04/18/2024 2:26 PM ROLL FORMING MACHINE SET UP MECHANIC [address] [address] Examination(s): RIGHT DIGITAL DIAGNOSTIC MAMMOGRAM [id number] Exam Date: 04/18/2024 1:09 PM Clinical Indication: [...] ADD VIEW RT DIGI (04/18/2024 1:27 PM ROLL FORMING MACHINE SET UP MECHANIC) Anatomical Region Laterality Modality Breast Right Radiographic Leanna ging 04/18/2024 1:55 PM ROLL FORMING MACHINE SET UP MECHANIC Narrative 04/18/2024 2:26 PM ROLL FORMING MACHINE SET UP MECHANIC [facility] [address] [address] [phone] Examination(s): RIGHT DIGITAL DIAGNOSTIC MAMMOGRAM [id number] Exam Date: 04/18/2024 1:09 PM Clinical Indication: [...] W BÁRBARA PRIYA DIGI (04/04/2024 10:40 AM ROLL FORMING MACHINE SET UP MECHANIC) Anatomical Region Laterality Modality Breast Bilateral Mammography 04/04/2024 4:25 PM ROLL FORMING MACHINE SET UP MECHANIC Impressions 04/04/2024 4:36 PM ROLL FORMING MACHINE SET UP MECHANIC IMPRESSION: Indeterminate two-view nodular asymmetry in the inferior medial right breast. RECOMMENDATION: Additional Imaging, Right ASSESSMENT: ACR BI-RADS 0 - INCOMPLETE: NEEDS ADDITIONAL IMAGING EVALUATION Ordered By: YAS LOPEZ Interpreted By: Tony Kraus MD, 04/04/2024 4:25 PM Narrative 04/04/2024 4:36 PM ROLL FORMING MACHINE SET UP MECHANIC [facility] [address] [address] [phone] EXAMINATION: BILATERAL SCREENING MAMMOGRAPHY Exam Date: 04/04/2024 [...] Last 3 Months Insurance [employer] Care Teams Right Of Way Buyer Relationship Specialty [place] [address] [place] [address] PCP - General INTERNAL MEDICINE 04/24/18
--- OUTSIDE RECORDS SUMMARY | 2024-05-23 22:56 | XMS_ITS | Encounter Summary ---
Author Organization [facility] Address [facility] [place] [address] Care Team Providers Care District Associate Judge Name Role Phone Lesvia Aguirre MD Primary Care Provider [phone] Yas Rodriugez MD Primary Care Provider + [phone] Encounter Details Date Type Department Care Team (Late Contact Info) Description 05/20/2017 Abstract [facility] [address] [place] [address] , Amaris Yo MD Social History Tobacco Use Types Packs/Day Years Used Date Smoking Tobacco: Never Assessed Comments Unknown Sex and Gender Information Value Date Recorded Sex Assigned at Not on file 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 Gender Identity Not on file Sexual Orientation Not on file documented as of this encounter Plan of Treatment Upcoming Encounters Date Type Department Care Team (Late Contact Info) Description 10/29/2024 11:00 AM CDT Appointment [facility] [place] Office Building - Mammography [address] [place] [phone] [place] [address], [place] [phone] documented as of this encounter Visit Diagnoses Not on filedocumented in this encounter Care Teams District Associate Judge Relationship Specialty Start Date End Date Lesvia Aguirre MD PCP - General FAMILY PRACTICE 09/29/17 04/23/18 [place] [address] [place] [address] PCP - General INTERNAL MEDICINE 04/24/18 documented as of this encounter
== END 2024-05-23 23:44 | disposition home or self-care (01) ==
LOC: ANHED 21:08 → ANHENDO 22:54
PROVIDERS: Emergency Provider Emergency Medicine; Visit Provider Internal Medicine Gastroenterology
PROC: 0DJ08ZZ Inspection of Upper Intestinal Tract, Via Natural or Artificial Opening Endoscopic (ICD-10-PCS; CPT 43247; principal; 2024-05-23 21:50)
DX: T18.128A Food in esophagus causing other injury, initial encounter (principal); K22.2 Esophageal obstruction; W44.F3XA Food entering into or through a natural orifice, initial encounter
CPT/HCPCS: 43247; 96374; 99285; A9270; J0330; J1610; J2003; J2405; J2704; J7120